=== PATIENT | male | born 1970 | race Caucasian/White ===

== ENCOUNTER 2017-07-14 22:12 | Emergency (ER) | payer BC ==
[~2017-07-14] VITALS: Ht 172.7 cm; Wt 100.7 kg
[~2017-07-14 22:12] MED LIST: AMOXICILLIN500 M3 PO; AMOXICILLIN500 MG PO; ATORVASTATIN CA20 M1 PO; ATORVASTATIN CA40 M1 PO; AVANDIA4 MG PO; CIPROFLOXACIN500 MG PO; CYCLOBENZAPRINE10 MG PO; FENOFIBRATE54 MG PO; FLAGYL500 MG PO; GARCINIA CAMBO1 EACH PO; GLIPIZIDE ER10 M1 PO; HYDROCHLOROTH12.5 MG PO; HYDROCODONE BIT1 T11 PO; INSULIN SYRINGE1 DEV SC; INSULIN-HUMA100 U/ML; KEFLEX500 MG PO; LANTUS100 U/ML SC; LIPITOR20 MG PO; LISINOPRIL AND1 TAB PO; LISINOPRIL10 MG PO; LOPID600 MG PO; METFORMIN HCL500 MG PO; METFORMIN1000 MG PO; MOTRIN800 MG PO; NORCO 5-325 TA1 EACH PO; NOVOLOG (INSULI10 ML; PRAVACHOL40 MG PO; PRAVASTATIN SOD40 MG PO; PREDNISONE10 MG PO; PYRIDIUM200 MG PO; TOBREX OPHTH S2.5 ML OPH; TORADOL10 MG PO; TRAMADOL HCL50 MG PO; TRICOR145 MG PO; VICODIN 5/500 505 MG PO; VICODIN ES 7501 TAB PO; VITAMIN D-32000 UNI1 PO; ZOFRAN ODT4 MG SL; Zofran4 MG PO
[2017-07-14] MEDS ORDERED: TAMIFLU 75MG CA75 MG PO (23:56)
== END 2017-07-15 00:05 | disposition home or self-care (01) ==
LOC: ED 22:12
DX: J40 Bronchitis, not specified as acute or chronic (principal); J10.1 Influenza due to other identified influenza virus with other respiratory manifestations; E66.9 Obesity, unspecified; E11.9 Type 2 diabetes mellitus without complications; E78.5 Hyperlipidemia, unspecified; I10 Essential (primary) hypertension; E11.10 Type 2 diabetes mellitus with ketoacidosis without coma; Z88.6 Allergy status to analgesic agent; Z79.4 Long term (current) use of insulin; Z91.018 Allergy to other foods; Z98.890 Other specified postprocedural states

== ENCOUNTER 2017-07-17 20:16 | Inpatient (IN) | payer BC ==
[~2017-07-17] VITALS: Ht 172.7 cm; Wt 104.8 kg
--- NOTE | ~2017-07-17 | PR ---
[place], [place] PROGRESS NOTE NAME: PRESTON PALOMO [facility] #: [id number] UNIT #: [id number] ROOM: 526 DOCTOR: TRACY BURNETT MD,DALE BIRTHDATE: [birth year] DOS: 07/21/2017 SUBJECTIVE: The patient was noted comfortable at this time, reduction of cough. The patient was noted with sputum expectoration still noted, described mildly purulent. The color was described to be yellowish. The patient was started on the oral doxycycline, which has been tolerated from last night and he received this morning dose as well. OBJECTIVE: VITAL SIGNS: The patient shows a normal temperature. The temperature of the patient at midnight noted 100.4 degree Fahrenheit, respiratory rate 18-20, heart rate of 61, blood pressure 121/71 to 125/57. Pulse oxygen saturation of the patient noted on room air 96% saturation. HEENT: Chronic obesity. NECK: Supple. CARDIOVASCULAR: S1, S2 audible. LUNGS: No wheeze or crackles. ABDOMEN: Soft, nontender. EXTREMITIES: Without edema. LABORATORY DATA: CBC: WBC count 4.4, hemoglobin 12.6, hematocrit 34.4, platelet count normal. BMP: Glucose 285, potassium 3.4. IMPRESSION: 1. Acute bronchitis for the patient noted with Staphylococcus aureus, currently treated with oral antibiotics for the patient. Doxycycline received with vancomycin as well for this admission. 2. Chronic obesity. PLAN OF MANAGEMENT: Continue antibiotics, bronchodilators, oxygen supplementation, other plan of therapy and care. DALE MOLINA MD CM:PNTRANS [id number] DALE BURNETT MD 07/21/171934 interface
--- NOTE | ~2017-07-17 | CON ---
[place], [place] REPORT OF CONSULTATION NAME: PRESTON PALOMO [facility] #: [id number] UNIT #: [id number] ROOM: 526 DOCTOR: DALE CLAYTON MD BIRTHDATE: [birth year] DOS: 07/18/2017 PULMONARY CONSULTATION, EVALUATION, AND MANAGEMENT REASON FOR CONSULTATION: Assess the patient's hemoptysis, coughing, ongoing with excessive sputum expectoration. CONSULTATION REQUESTED BY: Hospitalist services. HISTORY OF PRESENT ILLNESS: This is a 46-year-old white male, not known with any past medical illness related to pulmonary disease. He developed acute respiratory symptoms for the past several days. The symptoms was noted with sore throat, hoarseness, fever, and fatigue. The patient was seen as an emergency patient on 07/14/2017 for further assessment. The patient was tested positive for influenza rapid testing. The patient was also noted with acute pharyngitis. He was given intramuscular penicillin and also prescribed Tamiflu. The patient has not started the medication and returned back to the Emergency Room on 07/17/2017, noted with progressive worsening of the respiratory symptoms with copious amount of purulent sputum expectoration with cough. He denies any symptoms of chest pain with that. He was complaining of some symptoms of shortness of breath as well. He was stating that it has been noted like an elephant sitting on his chest feeling. The patient reported occasional wheezing. Denies any symptoms of wheezing. Denies any symptoms of true chest pain. He has been currently admitted to the hospital, being treated for acute pneumonia and acute bronchitis and other medical illnesses. patient noted with symptoms of small blood-tinged sputum expectoration prior to assessment in the Emergency Room. REVIEW OF SYSTEMS: CONSTITUTIONAL: Fatigue and tiredness reported with some symptoms of fever. There were no chills. EYES: Denies any dryness, redness, tenderness, or pain. EARS, NOSE, AND THROAT SYMPTOMS: Sore throat at this time. Sore throat, which was noted previously on 07/11/2017 has resolved. Denies symptoms of postnasal drainage. Denies symptoms of epistaxis. CARDIOVASCULAR SYSTEM: Denies angina pain, edema, pain in lower extremities, or palpitations. GASTROINTESTINAL SYMPTOMS: Denies dysphagia, nausea, vomiting, diarrhea, abdominal pain, hematemesis, or melena. History of obesity without any abnormal weight loss. GENITOURINARY SYMPTOMS: Denies dysuria, suprapubic pain, hematuria. SKIN: Denies abnormal lesions or rashes. No ulcers. MUSCULOSKELETAL: No acute joint pain deformities, redness, or tenderness. CENTRAL NERVOUS DIZZINESS; No dizziness, headache, diplopia, or syncopal episodes. Denies tingling sensation of the extremities or any focal weakness. Remaining systems were reviewed, they were noted all negative. PAST MEDICAL HISTORY: Noted with: 1. History of moderate obesity, BMI 35. [place], [place] REPORT OF CONSULTATION NAME: PRESTON PALOMO UNIT #: [id number] ROOM: 526 DOCTOR: TRACY BURNETT MD,DALE BIRTHDATE: [birth year] 2. History of type 2 diabetes mellitus. 3. Essential hypertension. 4. Hyperlipidemia. 5. History of umbilical hernia. PAST SURGICAL HISTORY: Reported as: 1. T and A. 2. Right knee arthroscopy for tendon repair. 3. Right wrist surgery as well. SOCIAL HISTORY: The patient is nonsmoker lifetime. Denies any illicit drug use. Denies history of chronic alcohol dependence as well. He has been several times and stated he has 8 children. FAMILY HISTORY: The patient's father at the age of 65 years due to complication of brain cancer. Mother at the age of 21 years due to acute cardiac arrest. HOME MEDICATIONS: Noted use of Lantus insulin, Humalog, and Tamiflu, which was prescribed but not used. DRUG ALLERGY HISTORY: BENADRYL. PHYSICAL EXAMINATION: GENERAL: This is a 46-year-old white male who has been currently lying in the bed, without any acute distress, has been noted coughing, producing purulent amount of copious sputum. Hemoptysis noted in the cough. VITAL SIGNS: Height of the patient recorded by the nursing staff with height of 5 feet 8 inches, weight of 231 pounds, BMI 35.1. Vital signs of the patient, which has been recorded, shows the temperature noted as low grade 99.7 degree Fahrenheit to 99.4 degree Fahrenheit, respiratory rate of 13-18, heart rate of 127 on admission, currently noted 91, blood pressure 133/75-136/85. Pulse oxygen saturation of the patient on 3 liters nasal cannula 96% saturation and on room air noted 96% saturation. HEENT: Dpmumgyp-nc-caumpw obesity. Head was atraumatic. Eyes nonicterus. Decreased posterior pharyngeal space with high tongue base and crowding soft tissue structures. CARDIOVASCULAR: S1, S2 are audible. LUNGS: Not noted with any wheezing or crackles. Breath sounds are noted mildly diminished bilaterally. ABDOMEN: Noted moderate bowel sounds are present with obesity. There was no tenderness. EXTREMITIES: Chronic obesity without edema, clubbing, or cyanosis. MUSCULOSKELETAL: Without any acute deformities. SKIN: Noted without any abnormal lesions or rashes. CENTRAL NERVOUS SYSTEM: Cranial nerves 2-12 intact. MUSCULOSKELETAL: Without any acute deformities. SKIN: Visible skin, no lesions or rashes. LABORATORY DATA AND IMAGING STUDIES: Rapid strep test on 07/14/2017 was noted [place], [place] REPORT OF CONSULTATION NAME: PRESTON PALOMO UNIT #: [id number] ROOM: 526 DOCTOR: MARY CLAYTON MDM BIRTHDATE: [birth year] positive for strep beta hemolytic strep. Influenza B was noted positive on 07/14/2017. Lactic acid yesterday 2.0 on admission. CBC yesterday on admission, normal CBC. CMP of the patient yesterday on admission, glucose 339, normal BUN and creatinine. Glucose 132. Two-view chest x-ray did not show any acute infiltration yesterday. CBC repeated for the patient this morning was normal. The BMP of the patient this morning, glucose 348. The troponin was noted normal yesterday and this morning. This patient had a CT scan of the chest that was done without contrast, was reviewed, does not show any acute pulmonary infiltration or other abnormalities. Large amount of fat was present in the mediastinal area secondary to current obesity. This is a normal finding for his body habitus. IMPRESSION: 1. The patient who has been currently admitted to the hospital, noted with what appeared to be purulent tracheobronchitis with acute bacterial infection and current acute influenza infection. 2. History of moderate obesity. 3. Type 2 diabetes mellitus, noted primarily uncontrolled. There were no findings noted consistent with either bronchial asthma or chronic obstructive pulmonary disease. PLAN OF THERAPY: The patient has been getting Zithromax as the one antibiotic intravenously. He has been getting Tamiflu as well for the influenza B infection. He will be ordered antibiotics in addition to the Zithromax with cephalosporins if the symptoms of the patient do not improve. The hemoptysis, which was noted for the patient is not noted concerning at this time related to the acute bronchitis, it should resolve with resolution of the bronchitis. Order the sputum for Gram stain and culture. Monitor respiratory status closely. Bronchodilator for the patient to be continued to help mobilize secretions appropriately. In case of any further changes, additional treatment changes will be made accordingly. DALE MOLINA MD CM:CONSTR:REPORT OF CONSULTATION 1437 07/19/17 0041 interface
--- NOTE | ~2017-07-17 | EKG ---
[place], [place] ELECTROCARDIOGRAM REPORT NAME: PRESTON PALOMO UNIT #: [id number] ROOM: 526 DOCTOR: TRACY BURNETT MD,DALE BIRTHDATE: [birth year] DOS: 07/17/2017 The electrocardiogram was done for this patient on 07/17/2017 at 9:18 p.m. Sinus tachycardia was noted for the patient with nonspecific ST-T changes. DALE MOLINA MD CM:EKGRPT:ELECTROCARDIOGRAM REPORT [id number] DALE BURNETT MD
--- NOTE | ~2017-07-17 | PR ---
[place], [place] PROGRESS NOTE NAME: PRESTON PALOMO UNIT #: [id number] ROOM: 526 DOCTOR: TRACY BURNETT MDDALE BIRTHDATE: [birth year] DOS: 07/19/2017 PULMONARY PROGRESS NOTE SUBJECTIVE: The patient was still complaining of tightness in the chest. He has been producing moderate amount of sputum, which was noted to be purulent. Denies symptoms of hemoptysis. Denies symptoms of any chest pain. The patient denies any symptoms of headache. Denies symptoms of diplopia. General weakness and fatigue for the patient is still described. He denies symptoms of nausea, vomiting, diarrhea or hematuria. Remaining systems were reviewed for the patient, they were noted all negative. OBJECTIVE: VITAL SIGNS: Shows normal temperature of 99 degree Fahrenheit, respiratory rate 20-18, heart rate 66-76, blood pressure 130/88 to 94/52. Intake is 3795 mL, output was not recorded. Pulse ox saturation on room air was 90% saturation. HEENT: Moderate obesity. NECK: Supple. Head was atraumatic. CARDIOVASCULAR: S1, S2 audible. LUNGS: The patient was noted without any wheezing. There were no crackles. Breaths were noted generally decreased bilaterally. ABDOMEN: Soft, nontender. It was obese. EXTREMITIES: With chronic obesity without any edema. MUSCULOSKELETAL: No deformities. SKIN: No lesions or rashes. CENTRAL NERVOUS SYSTEM: Nonfocal. Cranial nerves 2-12 intact. LABORATORY DATA: Preliminary culture of the sputum for the patient was noted with heavy growth of gram-positive cocci. Preliminary results of Gram stain showed moderate white blood cells, moderate gram-positive cocci in pairs and chains, moderate gram-negative bacilli and gram-positive cocci. Throat culture showed normal tayla. BMP this morning: Glucose 268, the remaining BMP was normal. CBC today: WBC count 4.5, hemoglobin 12.7, hematocrit 36.1, platelet count 101,000. IMPRESSION: 1. Gram-positive cocci for the patient was noted in the sputum culture with severe acute bronchitis, still producing copious amount of sputum at this time. 2. Positive strep throat on rapid test was also noted with culture of the throat pending. CT scan of the chest that was done for the patient yesterday was not noted with any acute pulmonary infiltration. 3. Chronic obesity as well. PLAN OF MANAGEMENT: At this time, the patient is getting antibiotic as Tamiflu for gram-positive cocci and azithromycin. I will add vancomycin to regimen cover for staph aureus for this patient as part of the broad-spectrum antibiotics since the patient is still producing significant amount of sputum, which appeared to be purulent. The culture will be monitored prior to suggesting any other changes. Supportive care therapy, plan of management. Continuation of bronchodilator, medical management of hyperglycemia as well. [place], [place] PROGRESS NOTE NAME: PRESTON PALOMO UNIT #: [id number] ROOM: 526 DOCTOR: DALE CLAYTON MD BIRTHDATE: [birth year] Usual care with additional treatment changes will be made for the patient based on progression of his illness. DALE MOLINA MD CM:PNTRANS [id number] DALE BURNETT MD 07/20/17 0032 interface
--- NOTE | ~2017-07-17 | PR ---
[place], [place] PROGRESS NOTE NAME: STACIAPRESTON A UNIT #: [id number] ROOM: 526 DOCTOR: DALE CLAYTON MD BIRTHDATE: [birth year] DOS: 07/20/2017 SUBJECTIVE: The patient was noted comfortable at this time, resting on the bed, reduction of the sputum expectoration noticed, it appeared to be purulent. In general, was feeling better from yesterday. Denies symptoms, abdominal pain. Denies symptoms of nausea or vomiting. OBJECTIVE: VITAL SIGNS: For the patient which has been recorded shows the temperature as normal, respiratory rate 20, heart rate 66, blood pressure 132/87. The pulse oxygen saturation on room air 96% saturation. HEENT: Examination shows no acute change. NECK: Supple. CARDIOVASCULAR SYSTEM: S1, S2 audible. LUNGS: Noted without any wheezing or crackles. ABDOMEN: Soft, nontender. Bowel sounds present. EXTREMITIES: Without any acute edema. Chronic obesity. LABORATORY DATA: CBC today normal, WBC count was noted, platelet count mildly decreased 111,000. BMP: Glucose 298, BUN and creatinine was normal. Culture of the sputum and throat both noted with Staphylococcus aureus, noted resistant to penicillin, but sensitive to multiple antibiotics including oxacillin. IMPRESSION: 1. The patient was noted with acute severe bronchitis with Staphylococcus aureus, currently responding to the treatment effectively. 2. Acute pharyngitis also noted. 3. Chronic obesity as well. PLAN OF MANAGEMENT: Continue one more days of vancomycin and then switched at this time. Start the patient on doxycycline concomitantly as well because the alternative treatment, the patient will be changed from tomorrow. Discontinue Zithromax well. Supportive therapy, plan of management and other care. Additional treatment changes to be made for this patient based on the progression of the illness. [place], [place] PROGRESS NOTE NAME: PRESTON PALOMO UNIT #: [id number] ROOM: 526 DOCTOR: DLAE CLAYTON MD BIRTHDATE: [birth year] DALE MOLINA MD CM:PNTRANS [id number] DALE BURNETT MD 07/20/17 1839 interface
[~2017-07-17 20:16] MED LIST changes: +TAMIFLU 75MG CA75 MG PO
[2017-07-17 20:23] VITALS: BP 127/83
[2017-07-17 21:42] LABS: BASO % 0.2 % (0.0-1.0); HEMOGLOBIN 15.4 g/dl (14.0-18.0); LYMPH # 0.8 10*3/uL (1.3-4.4); LYMPH % 16.7 % (27.0-41.0); MEAN CELL VOLUME 86.2 fl (80.0-94.0); MEAN CORPUSCULAR HGB 31.6 pg (27.0-31.0); MEAN CORPUSCULAR HGB CONC 36.7 g/dl (33.0-37.0); MEAN PLATELET VOLUME 11.2 fl (9.6-12.3); MONO # 0.7 10*3/uL (0.1-1.0); MONO % 15.1 % (3.0-9.0); NEUT # 3.3 10*3/uL (2.3-7.9); NEUT % 67.8 % (47.0-73.0); PLATELET COUNT AUTOMATED 128 10*3/uL (130-400); RED BLOOD COUNT 4.87 10*6/uL (4.50-5.90); RED CELL DISTRI WIDTH 11.7 % (0-14.5); WHITE BLOOD COUNT 4.9 10*3/uL (4.8-10.8)
[2017-07-17 21:46] LABS: ALBUMIN 3.4 gm/dl (3.1-4.5); ALKALINE PHOSPHATASE 103 U/L (45-117); BUN 14 mg/dl (7-24); CHLORIDE 95 mmol/L (98-107); CREATININE 1.09 mg/dL (0.70-1.30); POTASSIUM 3.9 mmol/L (3.5-5.1); SGOT/AST 24 IU/L (3-35); SGPT/ALT 28 U/L (12-78); SODIUM 132 mmol/L (136-145); TOTAL PROTEIN 7.2 gm/dL (6.4-8.2)
[2017-07-17 21:47] LABS: TROPONIN I < 0.015 ng/ml (<0.045)
[2017-07-17 23:02] VITALS: BP 131/80
[2017-07-17 23:15] VITALS: BP 136/85
[2017-07-18 03:24] LABS: HEMATOCRIT 38.1 % (42.0-52.0); HEMOGLOBIN 13.7 g/dl (14.0-18.0); LYMPH # 1.1 10*3/uL (1.3-4.4); LYMPH % 20.1 % (27.0-41.0); MEAN CORPUSCULAR HGB 31.3 pg (27.0-31.0); MEAN PLATELET VOLUME 10.7 fl (9.6-12.3); MONO # 0.8 10*3/uL (0.1-1.0); MONO % 15.3 % (3.0-9.0); NEUT # 3.5 10*3/uL (2.3-7.9); NEUT % 64.4 % (47.0-73.0); PLATELET COUNT AUTOMATED 120 10*3/uL (130-400); RED BLOOD COUNT 4.38 10*6/uL (4.50-5.90); RED CELL DISTRI WIDTH 11.8 % (0-14.5); WHITE BLOOD COUNT 5.4 10*3/uL (4.8-10.8)
[2017-07-18 03:37] LABS: BUN 11 mg/dl (7-24); CHLORIDE 97 mmol/L (98-107); POTASSIUM 3.9 mmol/L (3.5-5.1); SODIUM 134 mmol/L (136-145)
[2017-07-18 03:42] LABS: CHOLESTEROL 108 mg/dL (<200); HDL CHOLESTEROL 32 mg/dl (40-60); LDL CHOLESTEROL 26 mg/dL (9-159); PHOSPHOROUS 3.7 mg/dL (2.5-4.9); TRIGLYCERIDES 250 mg/dl (<150); VLDL CHOLESTEROL 50 mg/dL (6-40)
[2017-07-18 08:00] VITALS: BP 133/75
[2017-07-18 12:00] VITALS: BP 138/78
[2017-07-18 16:00] VITALS: BP 112/69
[2017-07-18 20:00] VITALS: BP 109/60
[2017-07-19] VITALS: BP 94/52
[2017-07-19 06:34] LABS: BASO % 0.2 % (0.0-1.0); HEMATOCRIT 36.1 % (42.0-52.0); HEMOGLOBIN 12.7 g/dl (14.0-18.0); LYMPH # 1.4 10*3/uL (1.3-4.4); LYMPH % 30.1 % (27.0-41.0); MEAN CELL VOLUME 88.3 fl (80.0-94.0); MEAN CORPUSCULAR HGB 31.1 pg (27.0-31.0); MEAN CORPUSCULAR HGB CONC 35.2 g/dl (33.0-37.0); MEAN PLATELET VOLUME 11.2 fl (9.6-12.3); MONO # 0.6 10*3/uL (0.1-1.0); MONO % 13.6 % (3.0-9.0); NEUT # 2.5 10*3/uL (2.3-7.9); NEUT % 55.7 % (47.0-73.0); PLATELET COUNT AUTOMATED 101 10*3/uL (130-400); RED BLOOD COUNT 4.09 10*6/uL (4.50-5.90); RED CELL DISTRI WIDTH 11.9 % (0-14.5); WHITE BLOOD COUNT 4.5 10*3/uL (4.8-10.8)
[2017-07-19 07:01] LABS: BUN 10 mg/dl (7-24); CHLORIDE 104 mmol/L (98-107); CREATININE 0.84 mg/dL (0.70-1.30); POTASSIUM 3.8 mmol/L (3.5-5.1); SODIUM 138 mmol/L (136-145)
[2017-07-19 08:00] VITALS: BP 117/70
[2017-07-19 11:53] VITALS: BP 130/88
[2017-07-19 16:00] VITALS: BP 140/73
[2017-07-19 20:00] VITALS: BP 162/96
[2017-07-20] VITALS: BP 130/81
[2017-07-20 06:19] LABS: HEMATOCRIT 36.2 % (42.0-52.0); HEMOGLOBIN 12.9 g/dl (14.0-18.0); MEAN CELL VOLUME 88.3 fl (80.0-94.0); MEAN CORPUSCULAR HGB 31.5 pg (27.0-31.0); MEAN CORPUSCULAR HGB CONC 35.6 g/dl (33.0-37.0); MEAN PLATELET VOLUME 11.1 fl (9.6-12.3); PLATELET COUNT AUTOMATED 111 10*3/uL (130-400); RED CELL DISTRI WIDTH 11.7 % (0-14.5); WHITE BLOOD COUNT 5.2 10*3/uL (4.8-10.8)
[2017-07-20 06:48] LABS: ALBUMIN 2.7 gm/dl (3.1-4.5); ALKALINE PHOSPHATASE 85 U/L (45-117); BUN 10 mg/dl (7-24); CHLORIDE 103 mmol/L (98-107); CREATININE 0.89 mg/dL (0.70-1.30); POTASSIUM 3.9 mmol/L (3.5-5.1); SGOT/AST 24 IU/L (3-35); SGPT/ALT 21 U/L (12-78); SODIUM 138 mmol/L (136-145); TOTAL PROTEIN 6.3 gm/dL (6.4-8.2)
[2017-07-20 07:52] LABS: ATYPICAL LYMPHS 2 % (0-0); PLATELET SUFFICIENCY LOW (NORMAL); TOTAL CELLS COUNTED 100 #CELLS
[2017-07-20] MEDS ORDERED: GLIPIZIDE5 MG PO (09:04)
[2017-07-20] MEDS ORDERED: METFORMIN1000 MG PO (09:05)
[2017-07-20] MEDS ORDERED: LIPITOR20 MG PO (09:15)
[2017-07-20] MEDS ORDERED: ZESTORETIC 10-1 EACH PO (09:15)
[2017-07-20 12:00] VITALS: BP 132/87
[2017-07-20 16:00] VITALS: BP 150/83
[2017-07-20 20:00] VITALS: BP 167/72
[2017-07-21] VITALS: BP 125/57
[2017-07-21 06:11] LABS: HEMATOCRIT 34.7 % (42.0-52.0); HEMOGLOBIN 12.6 g/dl (14.0-18.0); MEAN CELL VOLUME 86.8 fl (80.0-94.0); MEAN CORPUSCULAR HGB 31.5 pg (27.0-31.0); MEAN CORPUSCULAR HGB CONC 36.3 g/dl (33.0-37.0); MEAN PLATELET VOLUME 10.8 fl (9.6-12.3); PLATELET COUNT AUTOMATED 137 10*3/uL (130-400); RED CELL DISTRI WIDTH 11.6 % (0-14.5); WHITE BLOOD COUNT 4.4 10*3/uL (4.8-10.8)
[2017-07-21 06:20] LABS: BUN 7 mg/dl (7-24); CHLORIDE 102 mmol/L (98-107); CREATININE 0.88 mg/dL (0.70-1.30); POTASSIUM 3.4 mmol/L (3.5-5.1); SODIUM 139 mmol/L (136-145)
[2017-07-21 06:30] LABS: TOTAL CELLS COUNTED 100 #CELLS
[2017-07-21 06:33] LABS: PLATELET SUFFICIENCY NORMAL (NORMAL)
[2017-07-21 08:00] VITALS: BP 121/71
[2017-07-21] MEDS ORDERED: HYCODAN/HYDROMET5 ML PO (12:15)
[2017-07-21] MEDS ORDERED: TAMIFLU 75MG CA75 MG PO (12:15)
[2017-07-21] MEDS ORDERED: DOXYCYCLINE MO100 M1 PO (12:15)
== END 2017-07-21 12:30 | disposition home or self-care (01) | DRG 872 ==
LOC: ED 20:16 → 5E 22:29 → EDHOLD 22:29 → 5E 22:41
PROVIDERS: Family Medicine; Internal Medicine; Physician Assistant; Student in an Organized Health Care Education/Training Program
DX: A41.9 Sepsis, unspecified organism (principal); D69.6 Thrombocytopenia, unspecified; E87.8 Other disorders of electrolyte and fluid balance, not elsewhere classified; E87.1 Hypo-osmolality and hyponatremia; E11.65 Type 2 diabetes mellitus with hyperglycemia; J02.0 Streptococcal pharyngitis; J10.1 Influenza due to other identified influenza virus with other respiratory manifestations; D72.810 Lymphocytopenia; I10 Essential (primary) hypertension; E78.5 Hyperlipidemia, unspecified; E66.9 Obesity, unspecified; D64.9 Anemia, unspecified; Z71.6 Tobacco abuse counseling; J20.9 Acute bronchitis, unspecified; Z88.9 Allergy status to unspecified drugs, medicaments and biological substances; Z79.4 Long term (current) use of insulin; Z91.018 Allergy to other foods; Z80.0 Family history of malignant neoplasm of digestive organs; Z82.49 Family history of ischemic heart disease and other diseases of the circulatory system; Z83.3 Family history of diabetes mellitus; Z68.33 Body mass index [BMI] 33.0-33.9, adult

== ENCOUNTER 2017-08-21 14:10 | Emergency (ER) | payer BC ==
[~2017-08-21] VITALS: Ht 172.7 cm; Wt 10.0 kg
[~2017-08-21 14:10] MED LIST changes: +DOXYCYCLINE MO100 M1 PO; +GLIPIZIDE5 MG PO; +HYCODAN/HYDROMET5 ML PO; +ZESTORETIC 10-1 EACH PO
[2017-08-21 15:21] LABS: ALKALINE PHOSPHATASE 100 U/L (45-117); BUN 19 mg/dl (7-24); CHLORIDE 96 mmol/L (98-107); CREATININE 1.01 mg/dL (0.70-1.30); LIPASE 185 U/L (73-393); POTASSIUM 3.8 mmol/L (3.5-5.1); SGOT/AST 23 IU/L (3-35); SGPT/ALT 36 U/L (12-78); SODIUM 131 mmol/L (136-145); TOTAL PROTEIN 8.2 gm/dL (6.4-8.2)
[2017-08-21 15:23] LABS: TROPONIN I < 0.015 ng/ml (<0.045)
[2017-08-21 15:25] LABS: BASO % 0.3 % (0.0-1.0); EOS % 0.3 % (1.0-4.0); HEMATOCRIT 44.4 % (42.0-52.0); HEMOGLOBIN 16.4 g/dl (14.0-18.0); LYMPH # 0.9 10*3/uL (1.3-4.4); LYMPH % 29.6 % (27.0-41.0); MEAN CELL VOLUME 85.5 fl (80.0-94.0); MEAN CORPUSCULAR HGB 31.6 pg (27.0-31.0); MEAN CORPUSCULAR HGB CONC 36.9 g/dl (33.0-37.0); MEAN PLATELET VOLUME 11.4 fl (9.6-12.3); MONO # 0.5 10*3/uL (0.1-1.0); MONO % 16.4 % (3.0-9.0); NEUT # 1.7 10*3/uL (2.3-7.9); NEUT % 53.1 % (47.0-73.0); PLATELET COUNT AUTOMATED 150 10*3/uL (130-400); RED BLOOD COUNT 5.19 10*6/uL (4.50-5.90); WHITE BLOOD COUNT 3.1 10*3/uL (4.8-10.8)
[2017-08-21] MEDS ORDERED: LEVAQUIN750 M1 PO (16:08)
[2017-08-21] MEDS ORDERED: PROAIR HFA8.5 GM INH (16:08)
[2017-08-21] MEDS ORDERED: PREDNISONE10 MG PO (16:08)
[2017-08-21] MEDS ORDERED: MUCINEX1200 M1 PO (16:08)
== END 2017-08-21 16:22 | disposition home or self-care (01) ==
LOC: ED 14:10
PROVIDERS: Physician Assistant
DX: J40 Bronchitis, not specified as acute or chronic (principal); Z90.89 Acquired absence of other organs; Z98.890 Other specified postprocedural states; Z79.4 Long term (current) use of insulin; Z79.899 Other long term (current) drug therapy; Z88.6 Allergy status to analgesic agent; Z91.018 Allergy to other foods

== ENCOUNTER 2018-05-14 09:32 | Emergency (ER) | payer OTHER ==
[~2018-05-14] VITALS: Ht 172.7 cm; Wt 97.1 kg
--- NOTE | ~2018-05-14 | EKG ---
[place], [place] ELECTROCARDIOGRAM REPORT NAME: PRESTON PALOMO UNIT #: [id number] ROOM: DOCTOR: EPIPHANY DRAFT REPORT BIRTHDATE: [birth year] [facility] Test Date: 2018-05-14 Test Time: 09:57:47 Pat Name: PRESTON PALOMO Department: Room: Gender: M Surveillance Sensor Officer: Ashli Meeks : 1970 Requested By: DIANE BARBER DNP Order Number: [id number] Reading MD: Joe Johnson MD Measurements Intervals [place] Rate: 89 P: 30 [place]: 138 QRS: 29 QRSD: 102 T: 0 QT: 363 QTc: 442 Interpretive Statements Sinus rhythm Borderline T wave abnormalities Electronically Signed On 05-14-2018 18:13:16 PST by Joe Johnson MD CM:EKGRPT:ELECTROCARDIOGRAM REPORT [id number] DIANE BARBER DNP EPIPHANY DRAFT REPORT DIANE BARBER DNP
[~2018-05-14 09:32] MED LIST changes: +LEVAQUIN750 M1 PO; +MUCINEX1200 M1 PO; +PROAIR HFA8.5 GM INH
[2018-05-14 10:02] LABS: BASO % 0.2 % (0.0-1.0); EOS % 0.3 % (1.0-4.0); HEMATOCRIT 42.6 % (42.0-52.0); HEMOGLOBIN 15.5 g/dl (14.0-18.0); LYMPH # 1.4 10*3/uL (1.3-4.4); LYMPH % 11.5 % (27.0-41.0); MEAN CELL VOLUME 87.5 fl (80.0-94.0); MEAN CORPUSCULAR HGB 31.8 pg (27.0-31.0); MEAN CORPUSCULAR HGB CONC 36.4 g/dl (33.0-37.0); MEAN PLATELET VOLUME 10.9 fl (9.6-12.3); MONO # 1.4 10*3/uL (0.1-1.0); MONO % 11.4 % (3.0-9.0); NEUT # 9.4 10*3/uL (2.3-7.9); NEUT % 76.2 % (47.0-73.0); PLATELET COUNT AUTOMATED 172 10*3/uL (130-400); RED BLOOD COUNT 4.87 10*6/uL (4.50-5.90); RED CELL DISTRI WIDTH 11.8 % (0-14.5); WHITE BLOOD COUNT 12.3 10*3/uL (4.8-10.8)
[2018-05-14 10:18] LABS: ALBUMIN 3.4 gm/dl (3.1-4.5); ALKALINE PHOSPHATASE 105 U/L (45-117); BUN 12 mg/dl (7-24); CHLORIDE 95 mmol/L (98-107); CREATININE 1.17 mg/dL (0.70-1.30); POTASSIUM 3.7 mmol/L (3.5-5.1); SGOT/AST 9 IU/L (3-35); SGPT/ALT 24 U/L (12-78); SODIUM 132 mmol/L (136-145); TOTAL PROTEIN 8.1 gm/dL (6.4-8.2)
[2018-05-14 10:19] LABS: TROPONIN I < 0.015 ng/ml (<0.045)
[2018-05-14] MEDS ORDERED: MUCINEX1200 M1 PO (11:22)
[2018-05-14] MEDS ORDERED: PROAIR HFA8.5 GM INH (11:22)
[2018-05-14] MEDS ORDERED: LEVOFLOXACIN500 MG PO (11:22)
== END 2018-05-14 11:27 | disposition home or self-care (01) ==
LOC: ED 09:32
PROVIDERS: Nurse Practitioner Family
DX: J20.9 Acute bronchitis, unspecified (principal); I10 Essential (primary) hypertension; E11.9 Type 2 diabetes mellitus without complications; Z88.8 Allergy status to other drugs, medicaments and biological substances; Z91.018 Allergy to other foods; Z79.899 Other long term (current) drug therapy; Z79.84 Long term (current) use of oral hypoglycemic drugs; Z79.4 Long term (current) use of insulin; Z98.890 Other specified postprocedural states

== ENCOUNTER 2019-11-21 02:54 | Emergency (ER) | payer BC ==
[~2019-11-21] VITALS: Ht 172.7 cm; Wt 93.9 kg
[~2019-11-21 02:54] MED LIST changes: +LEVOFLOXACIN500 MG PO
[2019-11-21] MEDS ORDERED: NORCO 5-325 TA1 EACH PO (05:29)
[2019-11-21] MEDS ORDERED: CLINDAMYCIN HC300 MG PO ×2 (05:29→05:49)
== END 2019-11-21 05:57 | disposition home or self-care (01) ==
LOC: ED 02:54
DX: K04.01 Reversible pulpitis (principal); K02.9 Dental caries, unspecified; E78.5 Hyperlipidemia, unspecified; E78.00 Pure hypercholesterolemia, unspecified; I10 Essential (primary) hypertension; E11.9 Type 2 diabetes mellitus without complications; Z91.018 Allergy to other foods; Z88.8 Allergy status to other drugs, medicaments and biological substances; Z79.899 Other long term (current) drug therapy; Z79.84 Long term (current) use of oral hypoglycemic drugs

== ENCOUNTER 2020-01-02 00:53 | Emergency (ER) | payer BC ==
[~2020-01-02 00:53] MED LIST changes: +CLINDAMYCIN HC300 MG PO
[2020-01-02] MEDS ORDERED: NORCO 5-325 TA1 EACH PO (02:06)
[2020-01-02] MEDS ORDERED: CLINDAMYCIN HC300 MG PO (02:06)
== END 2020-01-02 02:40 | disposition home or self-care (01) ==
LOC: ED 00:53
DX: K04.01 Reversible pulpitis (principal); K02.9 Dental caries, unspecified; K08.89 Other specified disorders of teeth and supporting structures; E11.9 Type 2 diabetes mellitus without complications; I10 Essential (primary) hypertension; E78.00 Pure hypercholesterolemia, unspecified; Z88.8 Allergy status to other drugs, medicaments and biological substances; Z91.018 Allergy to other foods; Z79.84 Long term (current) use of oral hypoglycemic drugs; Z79.4 Long term (current) use of insulin

== ENCOUNTER 2020-12-21 09:38 | Emergency (ER) | payer OTHER ==
[~2020-12-21] VITALS: Wt 93.9 kg
== END 2020-12-21 11:16 | disposition home or self-care (01) ==
LOC: ED 09:38
DX: H61.22 Impacted cerumen, left ear (principal); R42 Dizziness and giddiness; H91.91 Unspecified hearing loss, right ear; E11.9 Type 2 diabetes mellitus without complications; I10 Essential (primary) hypertension; E78.5 Hyperlipidemia, unspecified; E66.9 Obesity, unspecified; Z88.6 Allergy status to analgesic agent; Z91.018 Allergy to other foods; Z79.899 Other long term (current) drug therapy; Z79.2 Long term (current) use of antibiotics; Z79.4 Long term (current) use of insulin; Z90.89 Acquired absence of other organs; Z98.890 Other specified postprocedural states

== ENCOUNTER 2021-05-10 21:32 | Emergency (ER) | payer OTHER ==
[2021-05-10] MEDS ORDERED: ZITHROMAX250 MG PO (22:48)
[2021-05-10] MEDS ORDERED: PREDNISONE20 M1 PO (22:48)
== END 2021-05-10 23:27 | disposition home or self-care (01) ==
LOC: ED 21:32
DX: J40 Bronchitis, not specified as acute or chronic (principal); Z79.899 Other long term (current) drug therapy; Z88.8 Allergy status to other drugs, medicaments and biological substances

== ENCOUNTER 2021-05-24 13:13 | Emergency (ER) | payer OTHER ==
[~2021-05-24 13:13] MED LIST changes: +PREDNISONE20 M1 PO; +ZITHROMAX250 MG PO
[2021-05-24] MEDS ORDERED: PROVENTIL HFA6.7 GM INH (21:16)
[2021-05-24] MEDS ORDERED: PREDNISONE20 M1 PO (22:08)
== END 2021-05-25 00:20 | disposition home or self-care (01) ==
LOC: ED 13:13
DX: U07.1 COVID-19 (principal); Z79.899 Other long term (current) drug therapy

== ENCOUNTER 2021-05-25 12:46 | Emergency (ER) | payer OTHER ==
[~2021-05-25 12:46] MED LIST changes: +PROVENTIL HFA6.7 GM INH
== END 2021-05-25 15:38 | disposition home or self-care (01) ==
LOC: ED 12:46
DX: U07.1 COVID-19 (principal); Z88.8 Allergy status to other drugs, medicaments and biological substances; Z79.899 Other long term (current) drug therapy

== ENCOUNTER 2021-08-07 00:14 | Emergency (ER) | payer OTHER ==
[~2021-08-07] VITALS: Ht 172.7 cm; Wt 91.2 kg
[2021-08-07] MEDS ORDERED: ALOGLIPTIN25 MG PO (00:24)
[2021-08-07 01:25] LABS: BASO % 0.4 % (0.0-1.0); EOS # 0.1 10*3/uL (0.0-0.4); EOS % 1.3 % (1.0-4.0); HEMATOCRIT 40.5 % (42.0-52.0); LYMPH # 1.8 10*3/uL (1.3-4.4); LYMPH % 23.2 % (27.0-41.0); MEAN CELL VOLUME 88.6 fl (80.0-94.0); MEAN CORPUSCULAR HGB 31.5 pg (27.0-31.0); MEAN CORPUSCULAR HGB CONC 35.6 g/dl (33.0-37.0); MEAN PLATELET VOLUME 11.3 fl (9.6-12.3); MONO % 12.5 % (3.0-9.0); NEUT # 4.9 10*3/uL (2.3-7.9); NEUT % 62.1 % (47.0-73.0); PLATELET COUNT AUTOMATED 191 10*3/uL (130-400); RED BLOOD COUNT 4.57 10*6/uL (4.50-5.90); RED CELL DISTRI WIDTH 11.9 % (0-14.5); WHITE BLOOD COUNT 7.9 10*3/uL (4.8-10.8)
[2021-08-07 01:58] LABS: ALKALINE PHOSPHATASE 117 U/L (45-117); BUN 16 mg/dl (7-24); CHLORIDE 106 mmol/L (98-107); CPK 127 U/L (39-308); CREATININE 1.08 mg/dL (0.70-1.30); SGOT/AST 14 IU/L (3-35); SGPT/ALT 33 U/L (12-78); SODIUM 138 mmol/L (136-145); TOTAL PROTEIN 6.6 gm/dL (6.4-8.2)
[2021-08-07] MEDS ORDERED: NAPROSYN500 MG PO (10:35)
== END 2021-08-07 10:51 | disposition home or self-care (01) ==
LOC: ED 00:14
PROVIDERS: Emergency Medicine
DX: M79.18 Myalgia, other site (principal); E11.9 Type 2 diabetes mellitus without complications; I10 Essential (primary) hypertension; E78.5 Hyperlipidemia, unspecified; Z88.8 Allergy status to other drugs, medicaments and biological substances; Z91.018 Allergy to other foods; Z79.899 Other long term (current) drug therapy; E66.9 Obesity, unspecified; Z90.89 Acquired absence of other organs; Z98.890 Other specified postprocedural states

== ENCOUNTER 2021-11-24 11:33 | Emergency (ER) | payer OTHER ==
[~2021-11-24] VITALS: Ht 172.7 cm; Wt 95.3 kg
[~2021-11-24 11:33] MED LIST changes: +ALOGLIPTIN25 MG PO; +NAPROSYN500 MG PO
[2021-11-24 12:50] LABS: BASO % 0.4 % (0.0-1.0); EOS # 0.1 10*3/uL (0.0-0.4); EOS % 1.6 % (1.0-4.0); LYMPH # 1.2 10*3/uL (1.3-4.4); LYMPH % 18.4 % (27.0-41.0); MEAN CELL VOLUME 87.4 fl (80.0-94.0); MEAN CORPUSCULAR HGB 31.3 pg (27.0-31.0); MEAN CORPUSCULAR HGB CONC 35.9 g/dl (33.0-37.0); MEAN PLATELET VOLUME 10.8 fl (9.6-12.3); MONO # 0.9 10*3/uL (0.1-1.0); MONO % 12.6 % (3.0-9.0); NEUT # 4.5 10*3/uL (2.3-7.9); NEUT % 66.3 % (47.0-73.0); PLATELET COUNT AUTOMATED 181 10*3/uL (130-400); RED BLOOD COUNT 4.69 10*6/uL (4.50-5.90); RED CELL DISTRI WIDTH 11.8 % (0-14.5); WHITE BLOOD COUNT 6.7 10*3/uL (4.8-10.8)
[2021-11-24 13:08] LABS: ALKALINE PHOSPHATASE 74 U/L (45-117); BUN 23 mg/dl (7-24); CHLORIDE 106 mmol/L (98-107); CREATININE 1.04 mg/dL (0.70-1.30); POTASSIUM 4.4 mmol/L (3.5-5.1); SGOT/AST 11 IU/L (3-35); SGPT/ALT 23 U/L (12-78); SODIUM 139 mmol/L (136-145); TOTAL PROTEIN 7.1 gm/dL (6.4-8.2)
== END 2021-11-24 19:41 | disposition home or self-care (01) ==
LOC: ED 11:33
PROVIDERS: Emergency Medicine; Nurse Practitioner Family
DX: M79.10 Myalgia, unspecified site (principal); Z20.822 Contact with and (suspected) exposure to COVID-19; R11.2 Nausea with vomiting, unspecified; E11.9 Type 2 diabetes mellitus without complications; Z88.8 Allergy status to other drugs, medicaments and biological substances; Z79.899 Other long term (current) drug therapy; Z98.890 Other specified postprocedural states; Z90.89 Acquired absence of other organs

== ENCOUNTER 2022-01-04 11:31 | Emergency (ER) | payer OTHER ==
[~2022-01-04] VITALS: Ht 172.7 cm; Wt 92.5 kg
[2022-01-04 12:31] LABS: BASO % 0.4 % (0.0-1.0); EOS # 0.1 10*3/uL (0.0-0.4); EOS % 0.6 % (1.0-4.0); HEMATOCRIT 39.2 % (42.0-52.0); LYMPH # 1.5 10*3/uL (1.3-4.4); LYMPH % 18.3 % (27.0-41.0); MEAN CELL VOLUME 89.3 fl (80.0-94.0); MEAN CORPUSCULAR HGB 31.4 pg (27.0-31.0); MEAN CORPUSCULAR HGB CONC 35.2 g/dl (33.0-37.0); MONO # 0.9 10*3/uL (0.1-1.0); MONO % 10.9 % (3.0-9.0); NEUT # 5.8 10*3/uL (2.3-7.9); NEUT % 69.6 % (47.0-73.0); PLATELET COUNT AUTOMATED 176 10*3/uL (130-400); RED BLOOD COUNT 4.39 10*6/uL (4.50-5.90); RED CELL DISTRI WIDTH 11.4 % (0-14.5); WHITE BLOOD COUNT 8.3 10*3/uL (4.8-10.8)
[2022-01-04 12:47] LABS: CREATININE 1.78 mg/dL (0.70-1.30); POTASSIUM 4.9 mmol/L (3.5-5.1); TOTAL PROTEIN 7.1 gm/dL (6.4-8.2)
== END 2022-01-04 16:09 | disposition home or self-care (01) ==
LOC: ED 11:31
PROVIDERS: Physician Assistant
DX: E86.0 Dehydration (principal); Z79.899 Other long term (current) drug therapy; Z98.890 Other specified postprocedural states; Z88.8 Allergy status to other drugs, medicaments and biological substances

== ENCOUNTER 2022-01-27 16:23 | Inpatient (IN) | payer OTHER ==
[~2022-01-27] VITALS: Ht 172.7 cm; Wt 97.5 kg
[2022-01-27 16:33] VITALS: BP 128/82
[2022-01-27 16:51] LABS: BASO % 0.4 % (0.0-1.0); EOS # 0.1 10*3/uL (0.0-0.4); EOS % 0.9 % (1.0-4.0); HEMATOCRIT 38.3 % (42.0-52.0); LYMPH # 1.1 10*3/uL (1.3-4.4); LYMPH % 15.8 % (27.0-41.0); MEAN CELL VOLUME 88.5 fl (80.0-94.0); MEAN CORPUSCULAR HGB 32.1 pg (27.0-31.0); MEAN CORPUSCULAR HGB CONC 36.3 g/dl (33.0-37.0); MEAN PLATELET VOLUME 10.3 fl (9.6-12.3); MONO # 0.9 10*3/uL (0.1-1.0); MONO % 12.5 % (3.0-9.0); NEUT # 4.8 10*3/uL (2.3-7.9); PLATELET COUNT AUTOMATED 201 10*3/uL (130-400); RED BLOOD COUNT 4.33 10*6/uL (4.50-5.90); RED CELL DISTRI WIDTH 11.9 % (0-14.5); WHITE BLOOD COUNT 6.9 10*3/uL (4.8-10.8)
[2022-01-27 17:08] LABS: ACT PARTIAL THROMBO TIME 28.1 SECONDS (20.0-32.1)
[2022-01-27 17:12] LABS: CREATININE 1.62 mg/dL (0.70-1.30); POTASSIUM 4.2 mmol/L (3.5-5.1); TOTAL PROTEIN 7.3 gm/dL (6.4-8.2)
[2022-01-27 22:58] VITALS: BP 100/60
[2022-01-28] VITALS (8 sets, daily range): BP systolic 107–132; BP diastolic 66–82
[2022-01-28 01:49] LABS: BILIRUBIN Negative (Negative); BLOOD Negative (Negative); CLARITY Clear (Clear); COLOR Yellow (Yellow); GLUCOSE 3+ (Negative); KETONE Trace (Negative); LEUKO ESTERASE Negative (Negative); NITRITE Negative (Negative); PH 5.5 (4.5-8.0); SPECIFIC GRAVITY 1.025 (1.001-1.030)
[2022-01-28 02:16] LABS: RBC 0-2 rbc/hpf (0-2); WBC 0-2 wbc/hpf (0-5)
[2022-01-28 07:53] LABS: BASO % 0.5 % (0.0-1.0); EOS # 0.1 10*3/uL (0.0-0.4); EOS % 1.2 % (1.0-4.0); HEMATOCRIT 38.2 % (42.0-52.0); LYMPH # 1.4 10*3/uL (1.3-4.4); LYMPH % 17.6 % (27.0-41.0); MEAN CELL VOLUME 89.3 fl (80.0-94.0); MEAN CORPUSCULAR HGB 32.2 pg (27.0-31.0); MEAN CORPUSCULAR HGB CONC 36.1 g/dl (33.0-37.0); MEAN PLATELET VOLUME 10.5 fl (9.6-12.3); MONO # 1.1 10*3/uL (0.1-1.0); MONO % 13.6 % (3.0-9.0); NEUT # 5.2 10*3/uL (2.3-7.9); NEUT % 66.6 % (47.0-73.0); PLATELET COUNT AUTOMATED 180 10*3/uL (130-400); RED BLOOD COUNT 4.28 10*6/uL (4.50-5.90); RED CELL DISTRI WIDTH 11.9 % (0-14.5); WHITE BLOOD COUNT 7.8 10*3/uL (4.8-10.8)
[2022-01-28 08:09] LABS: ALKALINE PHOSPHATASE 80 U/L (45-117); BUN 28 mg/dl (7-24); CHLORIDE 106 mmol/L (98-107); CHOLESTEROL 155 mg/dL (<200); CREATININE 1.16 mg/dL (0.70-1.30); LDL CHOLESTEROL 61 mg/dL (9-159); POTASSIUM 4.4 mmol/L (3.5-5.1); SGOT/AST 31 IU/L (3-35); SGPT/ALT 25 U/L (12-78); SODIUM 137 mmol/L (136-145); TOTAL PROTEIN 6.9 gm/dL (6.4-8.2); TRIGLYCERIDES 276 mg/dl (<150)
[2022-01-28 09:54] LABS: VITAMIN D, 25-HYDROXY 28.6 ng/mL (30-100)
[2022-01-29] VITALS: BP 123/68
[2022-01-29 06:43] LABS: BASO % 0.4 % (0.0-1.0); EOS # 0.1 10*3/uL (0.0-0.4); EOS % 1.3 % (1.0-4.0); HEMATOCRIT 39.1 % (42.0-52.0); LYMPH # 1.7 10*3/uL (1.3-4.4); LYMPH % 24.7 % (27.0-41.0); MEAN CELL VOLUME 89.5 fl (80.0-94.0); MEAN CORPUSCULAR HGB 31.6 pg (27.0-31.0); MEAN CORPUSCULAR HGB CONC 35.3 g/dl (33.0-37.0); MEAN PLATELET VOLUME 10.9 fl (9.6-12.3); MONO # 1.1 10*3/uL (0.1-1.0); MONO % 16.7 % (3.0-9.0); NEUT # 3.8 10*3/uL (2.3-7.9); NEUT % 56.5 % (47.0-73.0); PLATELET COUNT AUTOMATED 187 10*3/uL (130-400); RED BLOOD COUNT 4.37 10*6/uL (4.50-5.90); RED CELL DISTRI WIDTH 11.9 % (0-14.5); WHITE BLOOD COUNT 6.7 10*3/uL (4.8-10.8)
[2022-01-29 07:03] LABS: BUN 23 mg/dl (7-24); CHLORIDE 107 mmol/L (98-107); CREATININE 1.02 mg/dL (0.70-1.30); POTASSIUM 4.7 mmol/L (3.5-5.1); SODIUM 140 mmol/L (136-145)
[2022-01-29 08:00] VITALS: BP 103/55
[2022-01-29] MEDS ORDERED: ATORVASTATIN CA40 M1 PO (15:57)
[2022-01-29] MEDS ORDERED: ASPIRIN ADULT L81 M2 PO (15:57)
[2022-01-29] MEDS ORDERED: LOPRESSOR25 MG PO (15:57)
[2022-01-29 16:00] VITALS: BP 137/79
== END 2022-01-29 17:50 | disposition home or self-care (01) | DRG 280 ==
LOC: ED 16:23 → EDHOLD 18:03 → 5E 01-28 13:18
PROVIDERS: Emergency Medicine; Family Medicine; Internal Medicine; ADMIT Emergency Medicine; ATTEND Emergency Medicine
PROC: 4A02XM4 Measurement of Cardiac Total Activity, External Approach (ICD-10-PCS; principal; 2022-01-29)
PROC: 3E073KZ Introduction of Other Diagnostic Substance into Coronary Artery, Percutaneous Approach (ICD-10-PCS; 2022-01-29)
DX: I21.4 Non-ST elevation (NSTEMI) myocardial infarction (principal); N17.0 Acute kidney failure with tubular necrosis; I10 Essential (primary) hypertension; E78.00 Pure hypercholesterolemia, unspecified; E66.9 Obesity, unspecified; E78.5 Hyperlipidemia, unspecified; Z96.651 Presence of right artificial knee joint; D64.9 Anemia, unspecified; E11.65 Type 2 diabetes mellitus with hyperglycemia; E78.2 Mixed hyperlipidemia; E83.39 Other disorders of phosphorus metabolism; F17.220 Nicotine dependence, chewing tobacco, uncomplicated; M47.816 Spondylosis without myelopathy or radiculopathy, lumbar region; Z71.6 Tobacco abuse counseling; Z88.8 Allergy status to other drugs, medicaments and biological substances; Z86.16 Personal history of COVID-19; Z80.8 Family history of malignant neoplasm of other organs or systems; Z82.49 Family history of ischemic heart disease and other diseases of the circulatory system; R06.09 Other forms of dyspnea; R00.0 Tachycardia, unspecified

== ENCOUNTER 2022-04-05 08:52 | Emergency (ER) | payer OTHER ==
[~2022-04-05] VITALS: Wt 93.9 kg
[~2022-04-05 08:52] MED LIST changes: +ASPIRIN ADULT L81 M2 PO; +LOPRESSOR25 MG PO
== END 2022-04-05 10:26 | disposition home or self-care (01) ==
LOC: ED 08:52
DX: S46.911A Strain of unspecified muscle, fascia and tendon at shoulder and upper arm level, right arm, initial encounter (principal); F17.220 Nicotine dependence, chewing tobacco, uncomplicated; Z88.8 Allergy status to other drugs, medicaments and biological substances; Z91.018 Allergy to other foods; Z79.82 Long term (current) use of aspirin; Z79.899 Other long term (current) drug therapy; Z90.89 Acquired absence of other organs; X58.XXXA Exposure to other specified factors, initial encounter; Y93.89 Activity, other specified; Y92.89 Other specified places as the place of occurrence of the external cause; Y99.8 Other external cause status

== ENCOUNTER → 2022-06-06 | Outpatient (CLI) | payer OTHER | END | disposition home or self-care (01) | LOC: MRI 03:00 | PROVIDERS: ATTEND Family Medicine | DX: S43.401A Unspecified sprain of right shoulder joint, initial encounter (principal); M75.51 Bursitis of right shoulder; M75.121 Complete rotator cuff tear or rupture of right shoulder, not specified as traumatic; M19.011 Primary osteoarthritis, right shoulder; X58.XXXA Exposure to other specified factors, initial encounter; Y93.89 Activity, other specified; Y92.89 Other specified places as the place of occurrence of the external cause; Y99.8 Other external cause status ==

== ENCOUNTER 2022-07-03 22:43 | Emergency (ER) | payer OTHER ==
[~2022-07-03] VITALS: Ht 172.7 cm; Wt 93.9 kg
[2022-07-03] MEDS ORDERED: [UNRECOGNIZED DRUG - OTHER] PO (23:35)
== END 2022-07-04 00:30 | disposition home or self-care (01) ==
LOC: ED 22:43
DX: M19.011 Primary osteoarthritis, right shoulder (principal); F17.220 Nicotine dependence, chewing tobacco, uncomplicated; Z88.8 Allergy status to other drugs, medicaments and biological substances; Z79.899 Other long term (current) drug therapy; Z90.89 Acquired absence of other organs; Z98.890 Other specified postprocedural states

== ENCOUNTER 2022-07-16 16:42 | Emergency (ER) | payer OTHER ==
[~2022-07-16] VITALS: Ht 172.7 cm; Wt 93.9 kg
[~2022-07-16 16:42] MED LIST changes: +[UNRECOGNIZED DRUG - OTHER] PO
== END 2022-07-16 18:38 | disposition home or self-care (01) ==
LOC: ED 16:42
DX: R51.9 Headache, unspecified (principal); Z20.822 Contact with and (suspected) exposure to COVID-19; R09.81 Nasal congestion; J02.9 Acute pharyngitis, unspecified; I10 Essential (primary) hypertension; E11.9 Type 2 diabetes mellitus without complications; E78.00 Pure hypercholesterolemia, unspecified; Z88.8 Allergy status to other drugs, medicaments and biological substances; Z79.899 Other long term (current) drug therapy; Z90.89 Acquired absence of other organs

== ENCOUNTER 2022-07-19 14:29 | Emergency (ER) | payer OTHER ==
[~2022-07-19] VITALS: Ht 172.7 cm; Wt 93.9 kg
[2022-07-19] MEDS ORDERED: VIBRA-TAB100 MG PO (14:54)
== END 2022-07-19 15:03 | disposition home or self-care (01) ==
LOC: ED 14:29
DX: J01.10 Acute frontal sinusitis, unspecified (principal); Z91.018 Allergy to other foods; Z88.8 Allergy status to other drugs, medicaments and biological substances; Z98.890 Other specified postprocedural states; Z90.89 Acquired absence of other organs; F17.220 Nicotine dependence, chewing tobacco, uncomplicated

== ENCOUNTER 2022-08-05 22:28 | Emergency (ER) | payer OTHER ==
[~2022-08-05] VITALS: Wt 99.8 kg
[~2022-08-05 22:28] MED LIST changes: +VIBRA-TAB100 MG PO
[2022-08-05 23:05] LABS: BASO % 0.6 % (0.0-1.0); EOS # 0.1 10*3/uL (0.0-0.4); EOS % 1.9 % (1.0-4.0); HEMATOCRIT 38.9 % (42.0-52.0); LYMPH # 1.8 10*3/uL (1.3-4.4); LYMPH % 28.3 % (27.0-41.0); MEAN CELL VOLUME 90.5 fl (80.0-94.0); MEAN CORPUSCULAR HGB 31.6 pg (27.0-31.0); MEAN PLATELET VOLUME 10.5 fl (9.6-12.3); MONO % 15.5 % (3.0-9.0); NEUT # 3.3 10*3/uL (2.3-7.9); NEUT % 53.1 % (47.0-73.0); PLATELET COUNT AUTOMATED 217 10*3/uL (130-400); RED CELL DISTRI WIDTH 11.9 % (0-14.5); WHITE BLOOD COUNT 6.3 10*3/uL (4.8-10.8)
[2022-08-05 23:20] LABS: ALKALINE PHOSPHATASE 105 U/L (46-116); BUN 13 mg/dl (9-23); CHLORIDE 102 mmol/L (98-107); SGPT/ALT 39 U/L (10-49); TOTAL PROTEIN 7.4 gm/dL (6.0-8.0)
[2022-08-06] MEDS ORDERED: Ondansetron4 MG PO (01:41)
[2022-08-06] MEDS ORDERED: Meclizine25 MG PO (01:41)
== END 2022-08-06 02:11 | disposition home or self-care (01) ==
LOC: ED 22:28
PROVIDERS: Emergency Medicine
DX: H81.10 Benign paroxysmal vertigo, unspecified ear (principal); E11.9 Type 2 diabetes mellitus without complications; I10 Essential (primary) hypertension; Z91.018 Allergy to other foods; Z88.8 Allergy status to other drugs, medicaments and biological substances; Z96.652 Presence of left artificial knee joint; Z98.890 Other specified postprocedural states; Z90.89 Acquired absence of other organs; F17.220 Nicotine dependence, chewing tobacco, uncomplicated

== ENCOUNTER 2022-08-08 18:06 | Emergency (ER) | payer OTHER ==
[~2022-08-08] VITALS: Ht 172.7 cm; Wt 93.9 kg
[~2022-08-08 18:06] MED LIST changes: +Meclizine25 MG PO; +Ondansetron4 MG PO
[2022-08-08 19:19] LABS: BASO % 0.4 % (0.0-1.0); EOS # 0.1 10*3/uL (0.0-0.4); EOS % 1.1 % (1.0-4.0); LYMPH # 1.1 10*3/uL (1.3-4.4); LYMPH % 15.9 % (27.0-41.0); MEAN CELL VOLUME 89.2 fl (80.0-94.0); MEAN CORPUSCULAR HGB CONC 35.9 g/dl (33.0-37.0); MEAN PLATELET VOLUME 10.3 fl (9.6-12.3); MONO # 0.8 10*3/uL (0.1-1.0); MONO % 10.8 % (3.0-9.0); NEUT # 5.1 10*3/uL (2.3-7.9); NEUT % 71.1 % (47.0-73.0); PLATELET COUNT AUTOMATED 202 10*3/uL (130-400); RED BLOOD COUNT 4.37 10*6/uL (4.50-5.90); RED CELL DISTRI WIDTH 12.1 % (0-14.5); WHITE BLOOD COUNT 7.2 10*3/uL (4.8-10.8)
[2022-08-08 19:34] LABS: ALKALINE PHOSPHATASE 84 U/L (46-116); BUN 13 mg/dl (9-23); CHLORIDE 102 mmol/L (98-107); POTASSIUM 4.6 mmol/L (3.4-5.1); SGPT/ALT 32 U/L (10-49); TOTAL PROTEIN 6.5 gm/dL (6.0-8.0)
== END 2022-08-08 20:22 | disposition home or self-care (01) ==
LOC: ED 18:06
PROVIDERS: Physician Assistant
DX: R42 Dizziness and giddiness (principal); R09.81 Nasal congestion; Z88.8 Allergy status to other drugs, medicaments and biological substances; Z91.018 Allergy to other foods; Z79.899 Other long term (current) drug therapy; Z90.89 Acquired absence of other organs; Z98.890 Other specified postprocedural states; F17.220 Nicotine dependence, chewing tobacco, uncomplicated

== ENCOUNTER 2022-08-26 19:53 | Emergency (ER) | payer OTHER ==
[~2022-08-26] VITALS: Ht 180.3 cm; Wt 106.4 kg
[2022-08-26 20:18] LABS: BASO % 0.5 % (0.0-1.0); EOS # 0.1 10*3/uL (0.0-0.4); EOS % 1.4 % (1.0-4.0); HEMATOCRIT 43.7 % (42.0-52.0); LYMPH # 1.9 10*3/uL (1.3-4.4); MEAN CELL VOLUME 90.9 fl (80.0-94.0); MEAN CORPUSCULAR HGB 31.4 pg (27.0-31.0); MEAN CORPUSCULAR HGB CONC 34.6 g/dl (33.0-37.0); MEAN PLATELET VOLUME 10.7 fl (9.6-12.3); MONO # 1.2 10*3/uL (0.1-1.0); MONO % 14.1 % (3.0-9.0); NEUT # 5.4 10*3/uL (2.3-7.9); NEUT % 61.7 % (47.0-73.0); PLATELET COUNT AUTOMATED 231 10*3/uL (130-400); RED BLOOD COUNT 4.81 10*6/uL (4.50-5.90); RED CELL DISTRI WIDTH 11.9 % (0-14.5); WHITE BLOOD COUNT 8.8 10*3/uL (4.8-10.8)
[2022-08-26 20:36] LABS: POTASSIUM 4.3 mmol/L (3.4-5.1); TOTAL PROTEIN 7.7 gm/dL (6.0-8.0)
[2022-08-26] MEDS ORDERED: ONDANSETRON4 MG SL (21:16)
== END 2022-08-26 21:27 | disposition home or self-care (01) ==
LOC: ED 19:53
PROVIDERS: Internal Medicine
DX: K52.9 Noninfective gastroenteritis and colitis, unspecified (principal); E11.9 Type 2 diabetes mellitus without complications; I10 Essential (primary) hypertension; E78.00 Pure hypercholesterolemia, unspecified; Z91.018 Allergy to other foods; Z88.8 Allergy status to other drugs, medicaments and biological substances; Z90.89 Acquired absence of other organs; Z98.890 Other specified postprocedural states; F17.220 Nicotine dependence, chewing tobacco, uncomplicated

== ENCOUNTER 2022-09-06 22:14 | Emergency (ER) | payer OTHER ==
[~2022-09-06] VITALS: Ht 172.7 cm; Wt 93.9 kg
[~2022-09-06 22:14] MED LIST changes: +ONDANSETRON4 MG SL
[2022-09-07] MEDS ORDERED: HYDROCODONE-AC1 EAC1 PO (01:27)
[2022-09-07] MEDS ORDERED: Orphenadrine C100 MG PO (01:27)
== END 2022-09-07 01:30 | disposition home or self-care (01) ==
LOC: ED 22:14
DX: S33.5XXA Sprain of ligaments of lumbar spine, initial encounter (principal); Z91.018 Allergy to other foods; Z88.8 Allergy status to other drugs, medicaments and biological substances; Z79.899 Other long term (current) drug therapy; Z90.89 Acquired absence of other organs; F17.220 Nicotine dependence, chewing tobacco, uncomplicated; X50.1XXA Overexertion from prolonged static or awkward postures, initial encounter; Y93.89 Activity, other specified; Y92.89 Other specified places as the place of occurrence of the external cause; Y99.8 Other external cause status

== ENCOUNTER 2022-09-18 18:28 | Emergency (ER) | payer OTHER ==
[~2022-09-18] VITALS: Wt 93.9 kg
[~2022-09-18 18:28] MED LIST changes: +HYDROCODONE-AC1 EAC1 PO; +Orphenadrine C100 MG PO
[2022-09-18] MEDS ORDERED: METHOCARBAMOL500 M1 PO (21:26)
== END 2022-09-18 21:29 | disposition home or self-care (01) ==
LOC: ED 18:28
DX: S46.011A Strain of muscle(s) and tendon(s) of the rotator cuff of right shoulder, initial encounter (principal); E11.9 Type 2 diabetes mellitus without complications; Z79.4 Long term (current) use of insulin; I10 Essential (primary) hypertension; E78.00 Pure hypercholesterolemia, unspecified; Z91.018 Allergy to other foods; Z88.8 Allergy status to other drugs, medicaments and biological substances; Z90.89 Acquired absence of other organs; Z98.890 Other specified postprocedural states; F17.220 Nicotine dependence, chewing tobacco, uncomplicated; X58.XXXA Exposure to other specified factors, initial encounter; Y93.89 Activity, other specified; Y92.89 Other specified places as the place of occurrence of the external cause; Y99.8 Other external cause status

== ENCOUNTER 2022-09-27 03:07 | Emergency (ER) | payer OTHER ==
[~2022-09-27] VITALS: Wt 104.3 kg
[~2022-09-27 03:07] MED LIST changes: +METHOCARBAMOL500 M1 PO
[2022-09-27 03:23] LABS: BASO % 0.5 % (0.0-1.0); EOS # 0.1 10*3/uL (0.0-0.4); EOS % 1.5 % (1.0-4.0); HEMATOCRIT 37.7 % (42.0-52.0); LYMPH # 1.9 10*3/uL (1.3-4.4); LYMPH % 23.6 % (27.0-41.0); MEAN CELL VOLUME 88.9 fl (80.0-94.0); MEAN CORPUSCULAR HGB 32.1 pg (27.0-31.0); MEAN CORPUSCULAR HGB CONC 36.1 g/dl (33.0-37.0); MEAN PLATELET VOLUME 10.8 fl (9.6-12.3); MONO # 0.9 10*3/uL (0.1-1.0); MONO % 10.9 % (3.0-9.0); NEUT # 5.2 10*3/uL (2.3-7.9); NEUT % 63.1 % (47.0-73.0); PLATELET COUNT AUTOMATED 191 10*3/uL (130-400); RED BLOOD COUNT 4.24 10*6/uL (4.50-5.90); RED CELL DISTRI WIDTH 11.7 % (0-14.5); WHITE BLOOD COUNT 8.2 10*3/uL (4.8-10.8)
[2022-09-27 03:34] LABS: ACT PARTIAL THROMBO TIME 28.8 SECONDS (20.0-32.1)
[2022-09-27 03:39] LABS: ALKALINE PHOSPHATASE 97 U/L (46-116); BUN 16 mg/dl (9-23); CHLORIDE 105 mmol/L (98-107); POTASSIUM 4.6 mmol/L (3.4-5.1); SGPT/ALT 16 U/L (10-49); TOTAL PROTEIN 6.6 gm/dL (6.0-8.0)
== END 2022-09-27 06:56 | disposition home or self-care (01) ==
LOC: ED 03:07
PROVIDERS: Emergency Medicine
DX: R07.9 Chest pain, unspecified (principal); Z88.8 Allergy status to other drugs, medicaments and biological substances; Z91.018 Allergy to other foods; Z79.899 Other long term (current) drug therapy; Z90.89 Acquired absence of other organs; Z98.890 Other specified postprocedural states; F17.220 Nicotine dependence, chewing tobacco, uncomplicated

== ENCOUNTER 2022-10-15 22:16 | Emergency (ER) | payer OTHER ==
[~2022-10-15] VITALS: Ht 175.2 cm; Wt 90.7 kg
== END 2022-10-15 22:49 | disposition home or self-care (01) ==
LOC: ED 22:16
DX: G89.29 Other chronic pain (principal); M25.511 Pain in right shoulder; Z88.8 Allergy status to other drugs, medicaments and biological substances; Z91.018 Allergy to other foods; Z79.899 Other long term (current) drug therapy; Z98.890 Other specified postprocedural states; Z90.89 Acquired absence of other organs; F17.220 Nicotine dependence, chewing tobacco, uncomplicated

== ENCOUNTER 2023-05-08 15:50 | Emergency (ER) | payer OTHER ==
[~2023-05-08] VITALS: Ht 172.7 cm; Wt 93.9 kg
[2023-05-08] MEDS ORDERED: ROSUVASTATIN CAL5 MG PO (16:01)
== END 2023-05-08 20:39 | disposition home or self-care (01) ==
LOC: ED 15:50
DX: U07.1 COVID-19 (principal); B34.9 Viral infection, unspecified; R19.7 Diarrhea, unspecified; E11.9 Type 2 diabetes mellitus without complications; I10 Essential (primary) hypertension; E78.5 Hyperlipidemia, unspecified; I25.2 Old myocardial infarction; E66.9 Obesity, unspecified; F17.220 Nicotine dependence, chewing tobacco, uncomplicated; Z88.8 Allergy status to other drugs, medicaments and biological substances; Z91.018 Allergy to other foods; Z79.899 Other long term (current) drug therapy; Z79.82 Long term (current) use of aspirin; Z68.30 Body mass index [BMI] 30.0-30.9, adult; Z98.890 Other specified postprocedural states; Z90.89 Acquired absence of other organs

== ENCOUNTER 2023-06-04 04:23 | Emergency (ER) | payer OTHER ==
[~2023-06-04] VITALS: Ht 165.1 cm; Wt 68.0 kg
[~2023-06-04 04:23] MED LIST changes: +ROSUVASTATIN CAL5 MG PO
[2023-06-04 05:48] LABS: POTASSIUM 3.4 mmol/L (3.4-5.1); TOTAL PROTEIN 7.5 gm/dL (6.0-8.0)
[2023-06-04 06:10] LABS: BASO % 0.3 % (0.0-1.0); EOS # 0.1 10*3/uL (0.0-0.4); EOS % 0.6 % (1.0-4.0); HEMATOCRIT 45.3 % (42.0-52.0); LYMPH # 1.2 10*3/uL (1.3-4.4); LYMPH % 8.3 % (27.0-41.0); MEAN CELL VOLUME 89.2 fl (80.0-94.0); MEAN CORPUSCULAR HGB 31.7 pg (27.0-31.0); MEAN CORPUSCULAR HGB CONC 35.5 g/dl (33.0-37.0); MEAN PLATELET VOLUME 11.9 fl (9.6-12.3); MONO # 1.2 10*3/uL (0.1-1.0); MONO % 7.9 % (3.0-9.0); NEUT # 11.8 10*3/uL (2.3-7.9); PLATELET COUNT AUTOMATED 187 10*3/uL (130-400); RED BLOOD COUNT 5.08 10*6/uL (4.50-5.90); RED CELL DISTRI WIDTH 11.4 % (0-14.5); WHITE BLOOD COUNT 14.5 10*3/uL (4.8-10.8)
== END 2023-06-04 10:25 | disposition home or self-care (01) ==
LOC: ED 04:23
PROVIDERS: Internal Medicine
DX: K52.9 Noninfective gastroenteritis and colitis, unspecified (principal); R11.2 Nausea with vomiting, unspecified; E11.9 Type 2 diabetes mellitus without complications; I10 Essential (primary) hypertension; E78.00 Pure hypercholesterolemia, unspecified; Z91.018 Allergy to other foods; Z88.8 Allergy status to other drugs, medicaments and biological substances; Z90.89 Acquired absence of other organs; Z98.890 Other specified postprocedural states; F17.220 Nicotine dependence, chewing tobacco, uncomplicated

== ENCOUNTER 2023-06-06 11:46 | Emergency (ER) | payer OTHER ==
[~2023-06-06] VITALS: Wt 93.9 kg
[2023-06-06 15:28] LABS: BILIRUBIN Negative (Negative); BLOOD Negative (Negative); CLARITY Clear (Clear); COLOR Yellow (Yellow); GLUCOSE 3+ (Negative); KETONE Negative (Negative); LEUKO ESTERASE Negative (Negative); NITRITE Negative (Negative); SPECIFIC GRAVITY 1.015 (1.001-1.030); UROBILINOGEN 0.2 E.U./dl (0.0-1.0)
[2023-06-06 15:42] LABS: BASO % 0.4 % (0.0-1.0); EOS # 0.1 10*3/uL (0.0-0.4); EOS % 1.9 % (1.0-4.0); HEMATOCRIT 38.5 % (42.0-52.0); LYMPH # 1.4 10*3/uL (1.3-4.4); LYMPH % 30.1 % (27.0-41.0); MEAN CORPUSCULAR HGB 31.3 pg (27.0-31.0); MEAN CORPUSCULAR HGB CONC 34.8 g/dl (33.0-37.0); MEAN PLATELET VOLUME 11.2 fl (9.6-12.3); MONO # 0.9 10*3/uL (0.1-1.0); MONO % 19.7 % (3.0-9.0); NEUT # 2.2 10*3/uL (2.3-7.9); NEUT % 47.1 % (47.0-73.0); PLATELET COUNT AUTOMATED 141 10*3/uL (130-400); RED BLOOD COUNT 4.28 10*6/uL (4.50-5.90); RED CELL DISTRI WIDTH 11.6 % (0-14.5); WHITE BLOOD COUNT 4.7 10*3/uL (4.8-10.8)
[2023-06-06 16:03] LABS: ALKALINE PHOSPHATASE 87 U/L (46-116); BUN 13 mg/dl (9-23); CHLORIDE 104 mmol/L (98-107); LIPASE 37 U/L (12-53); POTASSIUM 4.3 mmol/L (3.4-5.1); SGPT/ALT 15 U/L (5-49); TOTAL PROTEIN 6.3 gm/dL (6.0-8.0)
[2023-06-06 16:20] LABS: WBC 0-2 wbc/hpf (0-5)
== END 2023-06-06 17:16 | disposition home or self-care (01) ==
LOC: ED 11:46
PROVIDERS: Nurse Practitioner Family
DX: A08.4 Viral intestinal infection, unspecified (principal); E11.9 Type 2 diabetes mellitus without complications; I10 Essential (primary) hypertension; E78.00 Pure hypercholesterolemia, unspecified; Z88.8 Allergy status to other drugs, medicaments and biological substances; Z91.018 Allergy to other foods; Z90.89 Acquired absence of other organs; Z98.890 Other specified postprocedural states; F17.220 Nicotine dependence, chewing tobacco, uncomplicated; Z20.822 Contact with and (suspected) exposure to COVID-19

== ENCOUNTER 2023-08-02 07:18 | Emergency (ER) | payer OTHER ==
[~2023-08-02] VITALS: Ht 172.7 cm; Wt 98.4 kg
[2023-08-02 08:08] LABS: BASO % 0.5 % (0.0-1.0); EOS # 0.1 10*3/uL (0.0-0.4); HEMATOCRIT 42.4 % (42.0-52.0); LYMPH # 1.8 10*3/uL (1.3-4.4); LYMPH % 21.1 % (27.0-41.0); MEAN CELL VOLUME 90.4 fl (80.0-94.0); MEAN CORPUSCULAR HGB 30.7 pg (27.0-31.0); MEAN PLATELET VOLUME 10.2 fl (9.6-12.3); MONO # 0.9 10*3/uL (0.1-1.0); MONO % 10.6 % (3.0-9.0); NEUT # 5.5 10*3/uL (2.3-7.9); NEUT % 66.3 % (47.0-73.0); PLATELET COUNT AUTOMATED 222 10*3/uL (130-400); RED BLOOD COUNT 4.69 10*6/uL (4.50-5.90); RED CELL DISTRI WIDTH 11.9 % (0-14.5); WHITE BLOOD COUNT 8.3 10*3/uL (4.8-10.8)
[2023-08-02 08:33] LABS: BUN 22 mg/dl (9-23); CHLORIDE 104 mmol/L (98-107); POTASSIUM 4.4 mmol/L (3.4-5.1)
[2023-08-02] MEDS ORDERED: SODIUM CHLORIDE 0.9% 1,000 ML IV ONE (09:15)
[2023-08-02] MEDS ORDERED: AMOX-CLAV 875-1 EACH PO (10:27)
== END 2023-08-02 10:49 | disposition home or self-care (01) ==
LOC: ED 07:18
PROVIDERS: Internal Medicine
DX: J01.90 Acute sinusitis, unspecified (principal); Z20.822 Contact with and (suspected) exposure to COVID-19; R11.2 Nausea with vomiting, unspecified; F17.220 Nicotine dependence, chewing tobacco, uncomplicated; Z88.8 Allergy status to other drugs, medicaments and biological substances; Z91.018 Allergy to other foods; Z79.899 Other long term (current) drug therapy; Z98.2 Presence of cerebrospinal fluid drainage device; Z98.890 Other specified postprocedural states; Z90.89 Acquired absence of other organs

== ENCOUNTER 2023-09-14 12:32 | Emergency (ER) | payer OTHER ==
[~2023-09-14] VITALS: Ht 172.7 cm; Wt 98.4 kg
[~2023-09-14 12:32] MED LIST changes: +AMOX-CLAV 875-1 EACH PO
[2023-09-14] MEDS ORDERED: GLIPIZIDE10 M2 PO (12:57)
[2023-09-14] MEDS ORDERED: METFORMIN HYD1000 MG PO (12:59)
[2023-09-14] MEDS ORDERED: JARDIANCE10 MG PO (12:59)
[2023-09-14] MEDS ORDERED: FISH OIL 1,0001 EAC2 PO (13:01)
[2023-09-14] MEDS ORDERED: IBUPROFEN 800 MG TAB PO ONE (13:15)
[2023-09-14] MEDS ORDERED: Metoclopramide Hydrochloride 5 MG TAB PO ONE (13:15)
[2023-09-14] MEDS ORDERED: REGLAN10 M1 PO (13:50)
[2023-09-14] MEDS ORDERED: IBU800 M2 PO (13:50)
[2023-09-14] MEDS ORDERED: AVPAK AZITHROM250 M1 PO (13:50)
== END 2023-09-14 14:00 | disposition home or self-care (01) ==
LOC: ED 12:32
DX: J40 Bronchitis, not specified as acute or chronic (principal); Z20.822 Contact with and (suspected) exposure to COVID-19; E11.9 Type 2 diabetes mellitus without complications; I10 Essential (primary) hypertension; E78.5 Hyperlipidemia, unspecified; F17.220 Nicotine dependence, chewing tobacco, uncomplicated; Z88.8 Allergy status to other drugs, medicaments and biological substances; Z79.82 Long term (current) use of aspirin; Z79.899 Other long term (current) drug therapy; Z90.89 Acquired absence of other organs; Z98.890 Other specified postprocedural states; Z96.611 Presence of right artificial shoulder joint

== ENCOUNTER 2023-09-17 20:55 | Emergency (ER) | payer OTHER ==
[~2023-09-17] VITALS: Ht 172.7 cm; Wt 98.4 kg
[~2023-09-17 20:55] MED LIST changes: +AVPAK AZITHROM250 M1 PO; +FISH OIL 1,0001 EAC2 PO; +GLIPIZIDE10 M2 PO; +IBU800 M2 PO; +JARDIANCE10 MG PO; +METFORMIN HYD1000 MG PO; +REGLAN10 M1 PO
[2023-09-17] MEDS ORDERED: methylPREDNISolone sod succ 1,000 MG/16 ML VIAL IM ONE (21:25)
[2023-09-17] MEDS ORDERED: Albuterol Sulf/Ipratropium 3 ML VIAL NEB ONE (21:25)
[2023-09-17] MEDS ORDERED: methylPREDNISolone sod succ 125 MG VIAL IM ONE (21:35)
[2023-09-17] MEDS ORDERED: Amoxicillin/Clavulanate Pota 875 MG TAB PO ONE (22:35)
[2023-09-17] MEDS ORDERED: AMOX-CLAV 875-1 EACH PO (22:41)
[2023-09-17] MEDS ORDERED: PROAIR RESPICL90 MCG INH (22:41)
[2023-09-17] MEDS ORDERED: MEDROL DOSEPAK4 MG PO (22:41)
[2023-09-17] MEDS ORDERED: BENZONATATE100 M1 PO (22:41)
== END 2023-09-17 23:45 | disposition home or self-care (01) ==
LOC: ED 20:55
DX: J20.9 Acute bronchitis, unspecified (principal); E11.9 Type 2 diabetes mellitus without complications; I10 Essential (primary) hypertension; I25.10 Atherosclerotic heart disease of native coronary artery without angina pectoris; F17.220 Nicotine dependence, chewing tobacco, uncomplicated; Z88.8 Allergy status to other drugs, medicaments and biological substances; Z79.82 Long term (current) use of aspirin; Z79.2 Long term (current) use of antibiotics; Z79.899 Other long term (current) drug therapy; Z90.89 Acquired absence of other organs; Z98.890 Other specified postprocedural states

== ENCOUNTER 2023-10-21 10:42 | Emergency (ER) | payer OTHER ==
[~2023-10-21] VITALS: Ht 172.7 cm; Wt 95.7 kg
[~2023-10-21 10:42] MED LIST changes: +BENZONATATE100 M1 PO; +MEDROL DOSEPAK4 MG PO; +PROAIR RESPICL90 MCG INH
[2023-10-21] MEDS ORDERED: SODIUM CHLORIDE 0.9% 1,000 ML IV ONE (11:20)
[2023-10-21] MEDS ORDERED: ACETAMINOPHEN 325 MG TAB PO ONE (11:20)
[2023-10-21 11:28] LABS: BASO % 0.4 % (0.0-1.0); EOS # 0.1 10*3/uL (0.0-0.4); EOS % 0.7 % (1.0-4.0); HEMATOCRIT 42.3 % (42.0-52.0); LYMPH # 1.6 10*3/uL (1.3-4.4); LYMPH % 19.1 % (27.0-41.0); MEAN CELL VOLUME 88.9 fl (80.0-94.0); MEAN CORPUSCULAR HGB 31.5 pg (27.0-31.0); MEAN CORPUSCULAR HGB CONC 35.5 g/dl (33.0-37.0); MEAN PLATELET VOLUME 10.6 fl (9.6-12.3); MONO # 0.8 10*3/uL (0.1-1.0); MONO % 10.1 % (3.0-9.0); NEUT # 5.7 10*3/uL (2.3-7.9); NEUT % 69.2 % (47.0-73.0); PLATELET COUNT AUTOMATED 166 10*3/uL (130-400); RED BLOOD COUNT 4.76 10*6/uL (4.50-5.90); RED CELL DISTRI WIDTH 12.1 % (0-14.5); WHITE BLOOD COUNT 8.2 10*3/uL (4.8-10.8)
[2023-10-21 11:46] LABS: BILIRUBIN Negative (Negative); BLOOD Negative (Negative); CLARITY Clear (Clear); COLOR Yellow (Yellow); GLUCOSE 3+ (Negative); KETONE Negative (Negative); LEUKO ESTERASE Negative (Negative); NITRITE Negative (Negative); SPECIFIC GRAVITY >= 1.030 (1.001-1.030); UROBILINOGEN 0.2 E.U./dl (0.0-1.0)
[2023-10-21 11:55] LABS: POTASSIUM 4.9 mmol/L (3.4-5.1); TOTAL PROTEIN 7.2 gm/dL (6.0-8.0)
[2023-10-21 11:58] LABS: BACTERIA TRACE; EPITHELIAL CELLS 0-2; MUCOUS TRACE; RBC 0-2 rbc/hpf (0-2); WBC 0-2 wbc/hpf (0-5)
[2023-10-21] MEDS ORDERED: MG-AL HYDROXIDE/SIMETICONE 30 ML UDC PO STA (12:39)
[2023-10-21] MEDS ORDERED: Dicyclomine Hydrochloride 20 MG/10 ML OSYR PO STA (12:39)
[2023-10-21] MEDS ORDERED: Lidocaine Hydrochloride 15 ML UDC PO STA (12:39)
== END 2023-10-21 12:58 | disposition home or self-care (01) ==
LOC: ED 10:42
PROVIDERS: Physician Assistant Medical
DX: K29.70 Gastritis, unspecified, without bleeding (principal); Z20.822 Contact with and (suspected) exposure to COVID-19; R11.2 Nausea with vomiting, unspecified; R19.7 Diarrhea, unspecified; E11.9 Type 2 diabetes mellitus without complications; I10 Essential (primary) hypertension; E78.5 Hyperlipidemia, unspecified; Z79.4 Long term (current) use of insulin; E78.00 Pure hypercholesterolemia, unspecified; Z88.8 Allergy status to other drugs, medicaments and biological substances; Z90.89 Acquired absence of other organs; Z98.890 Other specified postprocedural states; F17.220 Nicotine dependence, chewing tobacco, uncomplicated

== ENCOUNTER 2023-10-25 05:10 | Emergency (ER) | payer OTHER ==
[~2023-10-25] VITALS: Ht 172.7 cm; Wt 95.7 kg
[2023-10-25] MEDS ORDERED: Ondansetron Hydrochloride 4 MG/2 ML VIAL IV ONE (05:35)
[2023-10-25] MEDS ORDERED: SODIUM CHLORIDE 0.9% 1,000 ML IV ONE (05:35)
[2023-10-25] MEDS ORDERED: Pantoprazole Sodium 40 MG VIAL IV ONE (05:35)
[2023-10-25 06:21] LABS: BASO % 0.6 % (0.0-1.0); EOS # 0.1 10*3/uL (0.0-0.4); EOS % 1.8 % (1.0-4.0); HEMATOCRIT 40.8 % (42.0-52.0); LYMPH # 1.5 10*3/uL (1.3-4.4); LYMPH % 20.9 % (27.0-41.0); MEAN CELL VOLUME 91.3 fl (80.0-94.0); MEAN PLATELET VOLUME 11.3 fl (9.6-12.3); MONO # 0.9 10*3/uL (0.1-1.0); MONO % 12.6 % (3.0-9.0); NEUT # 4.6 10*3/uL (2.3-7.9); NEUT % 63.7 % (47.0-73.0); PLATELET COUNT AUTOMATED 164 10*3/uL (130-400); RED BLOOD COUNT 4.47 10*6/uL (4.50-5.90); RED CELL DISTRI WIDTH 11.9 % (0-14.5); WHITE BLOOD COUNT 7.2 10*3/uL (4.8-10.8)
[2023-10-25 06:25] LABS: ALKALINE PHOSPHATASE 139 U/L (46-116); BUN 23 mg/dl (9-23); CHLORIDE 101 mmol/L (98-107); LIPASE 65 U/L (12-53); POTASSIUM 4.1 mmol/L (3.4-5.1); SGPT/ALT 21 U/L (5-49); TOTAL PROTEIN 6.5 gm/dL (6.0-8.0)
[2023-10-25] MEDS ORDERED: OMEPRAZOLE40 MG PO (07:06)
== END 2023-10-25 07:21 | disposition home or self-care (01) ==
LOC: ED 05:10
PROVIDERS: Internal Medicine
DX: A08.4 Viral intestinal infection, unspecified (principal); Z20.822 Contact with and (suspected) exposure to COVID-19; R11.2 Nausea with vomiting, unspecified; E11.22 Type 2 diabetes mellitus with diabetic chronic kidney disease; I12.9 Hypertensive chronic kidney disease with stage 1 through stage 4 chronic kidney disease, or unspecified chronic kidney disease; N18.31 Chronic kidney disease, stage 3a; E78.00 Pure hypercholesterolemia, unspecified; F17.210 Nicotine dependence, cigarettes, uncomplicated; Z88.8 Allergy status to other drugs, medicaments and biological substances; Z91.018 Allergy to other foods; Z98.890 Other specified postprocedural states; Z90.89 Acquired absence of other organs

== ENCOUNTER 2023-11-13 19:24 | Emergency (ER) | payer OTHER ==
[~2023-11-13] VITALS: Ht 172.7 cm; Wt 77.1 kg
[~2023-11-13 19:24] MED LIST changes: +OMEPRAZOLE40 MG PO
== END 2023-11-13 22:30 | disposition home or self-care (01) ==
LOC: ED 19:24
DX: S86.912A Strain of unspecified muscle(s) and tendon(s) at lower leg level, left leg, initial encounter (principal); E11.9 Type 2 diabetes mellitus without complications; F17.220 Nicotine dependence, chewing tobacco, uncomplicated; Z88.8 Allergy status to other drugs, medicaments and biological substances; Z79.82 Long term (current) use of aspirin; Z90.89 Acquired absence of other organs; Z98.890 Other specified postprocedural states; X50.1XXA Overexertion from prolonged static or awkward postures, initial encounter; Y93.89 Activity, other specified; Y92.89 Other specified places as the place of occurrence of the external cause; Y99.8 Other external cause status

== ENCOUNTER 2023-12-25 13:01 | Emergency (ER) | payer OTHER ==
[~2023-12-25] VITALS: Ht 172.7 cm; Wt 93.9 kg
[2023-12-25] MEDS ORDERED: Metoclopramide Hydrochloride 10 MG/2 ML AMP IV ONE (13:50)
[2023-12-25] MEDS ORDERED: SODIUM CHLORIDE 0.9% 1,000 ML IV ONE (13:55)
[2023-12-25 14:05] LABS: BASO % 0.3 % (0.0-1.0); EOS # 0.1 10*3/uL (0.0-0.4); EOS % 1.1 % (1.0-4.0); HEMATOCRIT 42.4 % (42.0-52.0); LYMPH # 1.2 10*3/uL (1.3-4.4); LYMPH % 19.5 % (27.0-41.0); MEAN CELL VOLUME 91.6 fl (80.0-94.0); MEAN CORPUSCULAR HGB 32.4 pg (27.0-31.0); MEAN CORPUSCULAR HGB CONC 35.4 g/dl (33.0-37.0); MEAN PLATELET VOLUME 10.9 fl (9.6-12.3); MONO # 0.8 10*3/uL (0.1-1.0); NEUT # 4.1 10*3/uL (2.3-7.9); NEUT % 65.5 % (47.0-73.0); PLATELET COUNT AUTOMATED 154 10*3/uL (130-400); RED BLOOD COUNT 4.63 10*6/uL (4.50-5.90); RED CELL DISTRI WIDTH 12.3 % (0-14.5); WHITE BLOOD COUNT 6.3 10*3/uL (4.8-10.8)
[2023-12-25 14:23] LABS: POTASSIUM 4.8 mmol/L (3.4-5.1); TOTAL PROTEIN 7.1 gm/dL (6.0-8.0)
[2023-12-25 16:10] LABS: BILIRUBIN Negative (Negative); BLOOD Negative (Negative); CLARITY Clear (Clear); COLOR Yellow (Yellow); GLUCOSE 3+ (Negative); KETONE Negative (Negative); LEUKO ESTERASE Negative (Negative); NITRITE Negative (Negative); PH 5.5 (4.5-8.0); SPECIFIC GRAVITY 1.025 (1.001-1.030); UROBILINOGEN 0.2 E.U./dl (0.0-1.0)
[2023-12-25 16:29] LABS: EPITHELIAL CELLS 0-2; WBC 0-2 wbc/hpf (0-5)
== END 2023-12-25 17:01 | disposition home or self-care (01) ==
LOC: ED 13:01
PROVIDERS: Student in an Organized Health Care Education/Training Program
DX: B34.9 Viral infection, unspecified (principal); R11.2 Nausea with vomiting, unspecified; R19.7 Diarrhea, unspecified; F17.220 Nicotine dependence, chewing tobacco, uncomplicated; Z88.8 Allergy status to other drugs, medicaments and biological substances; Z79.82 Long term (current) use of aspirin; Z79.899 Other long term (current) drug therapy; Z79.84 Long term (current) use of oral hypoglycemic drugs; Z90.89 Acquired absence of other organs; Z98.890 Other specified postprocedural states; Z96.611 Presence of right artificial shoulder joint

== ENCOUNTER 2024-01-21 14:08 | Emergency (ER) | payer OTHER ==
[~2024-01-21] VITALS: Ht 172.7 cm; Wt 95.7 kg
[2024-01-21] MEDS ORDERED: SITAGLIPTIN100 MG PO (14:30)
[2024-01-21] MEDS ORDERED: MEDROL DOSEPAK4 MG PO (16:55)
== END 2024-01-21 17:12 | disposition home or self-care (01) ==
LOC: ED 14:08
DX: B34.9 Viral infection, unspecified (principal); Z20.822 Contact with and (suspected) exposure to COVID-19; R11.10 Vomiting, unspecified; F17.220 Nicotine dependence, chewing tobacco, uncomplicated; Z88.8 Allergy status to other drugs, medicaments and biological substances; Z79.899 Other long term (current) drug therapy; Z79.82 Long term (current) use of aspirin; Z79.84 Long term (current) use of oral hypoglycemic drugs; Z98.890 Other specified postprocedural states; Z90.89 Acquired absence of other organs; Z96.611 Presence of right artificial shoulder joint

== ENCOUNTER 2024-02-10 20:37 | Emergency (ER) | payer OTHER ==
[~2024-02-10] VITALS: Ht 175.2 cm; Wt 98.4 kg
[~2024-02-10 20:37] MED LIST changes: +SITAGLIPTIN100 MG PO
== END 2024-02-10 21:59 | disposition home or self-care (01) ==
LOC: ED 20:37
DX: Z00.00 Encounter for general adult medical examination without abnormal findings (principal); Z20.822 Contact with and (suspected) exposure to COVID-19; E11.9 Type 2 diabetes mellitus without complications; I10 Essential (primary) hypertension; E78.00 Pure hypercholesterolemia, unspecified; I25.2 Old myocardial infarction; Z79.4 Long term (current) use of insulin; F17.220 Nicotine dependence, chewing tobacco, uncomplicated; Z88.8 Allergy status to other drugs, medicaments and biological substances; Z90.89 Acquired absence of other organs; Z98.890 Other specified postprocedural states

== ENCOUNTER 2024-03-20 00:11 | Emergency (ER) | payer OTHER ==
[~2024-03-20] VITALS: Ht 172.7 cm; Wt 93.9 kg
[2024-03-20] MEDS ORDERED: Ketorolac Tromethamine 60 MG/2 ML VIAL IM ONE (00:40)
[2024-03-20] MEDS ORDERED: METHOCARBAMOL 500 MG TAB PO ONE (00:40)
[2024-03-20] MEDS ORDERED: NAPROXEN250 MG PO (00:43)
[2024-03-20] MEDS ORDERED: METHOCARBAMOL750 M1 PO (00:43)
== END 2024-03-20 00:57 | disposition home or self-care (01) ==
LOC: ED 00:11
DX: S39.012A Strain of muscle, fascia and tendon of lower back, initial encounter (principal); E11.9 Type 2 diabetes mellitus without complications; I10 Essential (primary) hypertension; E78.00 Pure hypercholesterolemia, unspecified; F17.220 Nicotine dependence, chewing tobacco, uncomplicated; Z79.4 Long term (current) use of insulin; Z88.8 Allergy status to other drugs, medicaments and biological substances; Z90.89 Acquired absence of other organs; Z98.890 Other specified postprocedural states; X58.XXXA Exposure to other specified factors, initial encounter; Y93.89 Activity, other specified; Y92.89 Other specified places as the place of occurrence of the external cause; Y99.0 Civilian activity done for income or pay

== ENCOUNTER 2024-04-14 13:15 | Emergency (ER) | payer OTHER ==
[~2024-04-14] VITALS: Wt 98.4 kg
[~2024-04-14 13:15] MED LIST changes: +METHOCARBAMOL750 M1 PO; +NAPROXEN250 MG PO
[2024-04-14] MEDS ORDERED: SODIUM CHLORIDE 0.9% 1,000 ML IV ONE (14:45)
[2024-04-14] MEDS ORDERED: KRILL OIL500 MG PO (14:48)
[2024-04-14] MEDS ORDERED: CELEBREX400 M1 PO (14:48)
[2024-04-14 14:58] LABS: BASO % 0.5 % (0.0-1.0); EOS # 0.1 10*3/uL (0.0-0.4); EOS % 1.2 % (1.0-4.0); HEMATOCRIT 42.9 % (42.0-52.0); MEAN CELL VOLUME 90.1 fl (80.0-94.0); MEAN CORPUSCULAR HGB 31.3 pg (27.0-31.0); MEAN CORPUSCULAR HGB CONC 34.7 g/dl (33.0-37.0); MEAN PLATELET VOLUME 10.5 fl (9.6-12.3); MONO # 0.8 10*3/uL (0.1-1.0); NEUT # 3.5 10*3/uL (2.3-7.9); NEUT % 59.5 % (47.0-73.0); PLATELET COUNT AUTOMATED 179 10*3/uL (130-400); RED BLOOD COUNT 4.76 10*6/uL (4.50-5.90); RED CELL DISTRI WIDTH 11.9 % (0-14.5); WHITE BLOOD COUNT 5.9 10*3/uL (4.8-10.8)
[2024-04-14 15:19] LABS: POTASSIUM 4.4 mmol/L (3.4-5.1); TOTAL PROTEIN 7.3 gm/dL (6.0-8.0)
[2024-04-14] MEDS ORDERED: IOHEXOL 300 MG/ML 100 ML VIAL IV ONE (16:20)
[2024-04-14] MEDS ORDERED: IOHEXOL 300 MG/ML 100 ML VIAL ONE (16:36)
[2024-04-14 16:56] LABS: BILIRUBIN Negative (Negative); BLOOD Negative (Negative); CLARITY Clear (Clear); COLOR Yellow (Yellow); GLUCOSE 3+ (Negative); KETONE Negative (Negative); LEUKO ESTERASE Negative (Negative); NITRITE Negative (Negative); PH 5.5 (4.5-8.0); SPECIFIC GRAVITY >= 1.030 (1.001-1.030); UROBILINOGEN 0.2 E.U./dl (0.0-1.0)
[2024-04-14 17:07] LABS: BACTERIA TRACE; WBC 0-2 wbc/hpf (0-5)
== END 2024-04-14 17:43 | disposition home or self-care (01) ==
LOC: ED 13:15
PROVIDERS: Nurse Practitioner Family
DX: R19.7 Diarrhea, unspecified (principal); R10.32 Left lower quadrant pain; E11.9 Type 2 diabetes mellitus without complications; I10 Essential (primary) hypertension; E78.00 Pure hypercholesterolemia, unspecified; I25.2 Old myocardial infarction; F17.220 Nicotine dependence, chewing tobacco, uncomplicated; Z88.8 Allergy status to other drugs, medicaments and biological substances; Z90.89 Acquired absence of other organs; Z98.890 Other specified postprocedural states; Z79.82 Long term (current) use of aspirin; Z79.899 Other long term (current) drug therapy

== ENCOUNTER 2024-04-17 13:34 | Emergency (ER) | payer OTHER ==
[~2024-04-17] VITALS: Ht 172.7 cm; Wt 98.4 kg
[~2024-04-17 13:34] MED LIST changes: +CELEBREX400 M1 PO; +KRILL OIL500 MG PO
[2024-04-17 16:59] LABS: BASO % 0.4 % (0.0-1.0); EOS # 0.2 10*3/uL (0.0-0.4); HEMATOCRIT 43.1 % (42.0-52.0); MEAN CELL VOLUME 90.4 fl (80.0-94.0); MEAN CORPUSCULAR HGB 31.2 pg (27.0-31.0); MEAN CORPUSCULAR HGB CONC 34.6 g/dl (33.0-37.0); MEAN PLATELET VOLUME 10.5 fl (9.6-12.3); MONO % 13.8 % (3.0-9.0); NEUT # 4.2 10*3/uL (2.3-7.9); NEUT % 56.2 % (47.0-73.0); PLATELET COUNT AUTOMATED 193 10*3/uL (130-400); RED BLOOD COUNT 4.77 10*6/uL (4.50-5.90); RED CELL DISTRI WIDTH 11.9 % (0-14.5); WHITE BLOOD COUNT 7.5 10*3/uL (4.8-10.8)
[2024-04-17 17:22] LABS: POTASSIUM 4.2 mmol/L (3.4-5.1); TOTAL PROTEIN 7.3 gm/dL (6.0-8.0)
[2024-04-17] MEDS ORDERED: LOMOTIL 2.5-0.1 EACH PO (18:23)
[2024-04-17] MEDS ORDERED: CIPRO500 MG PO (18:23)
[2024-04-17] MEDS ORDERED: Ciprofloxacin Hydrochloride 500 MG TAB PO ONE (18:25)
== END 2024-04-17 18:46 | disposition home or self-care (01) ==
LOC: ED 13:34
PROVIDERS: Nurse Practitioner Family
DX: R11.2 Nausea with vomiting, unspecified (principal); Z20.822 Contact with and (suspected) exposure to COVID-19; R19.7 Diarrhea, unspecified; E11.65 Type 2 diabetes mellitus with hyperglycemia; E78.5 Hyperlipidemia, unspecified; D63.1 Anemia in chronic kidney disease; E11.22 Type 2 diabetes mellitus with diabetic chronic kidney disease; I12.9 Hypertensive chronic kidney disease with stage 1 through stage 4 chronic kidney disease, or unspecified chronic kidney disease; N18.31 Chronic kidney disease, stage 3a; E78.00 Pure hypercholesterolemia, unspecified; F17.210 Nicotine dependence, cigarettes, uncomplicated; Z88.8 Allergy status to other drugs, medicaments and biological substances; Z98.890 Other specified postprocedural states; Z90.89 Acquired absence of other organs

== ENCOUNTER 2024-05-12 16:45 | Emergency (ER) | payer OTHER ==
[~2024-05-12] VITALS: Ht 172.7 cm; Wt 93.9 kg
[~2024-05-12 16:45] MED LIST changes: +CIPRO500 MG PO; +LOMOTIL 2.5-0.1 EACH PO
[2024-05-12] MEDS ORDERED: Ondansetron Hydrochloride 4 MG/2 ML VIAL IV ONE (18:45)
[2024-05-12] MEDS ORDERED: SODIUM CHLORIDE 0.9% 1,000 ML IV ONE (18:45)
[2024-05-12 19:07] LABS: BASO % 0.5 % (0.0-1.0); EOS # 0.1 10*3/uL (0.0-0.4); HEMATOCRIT 43.1 % (42.0-52.0); MEAN CELL VOLUME 90.4 fl (80.0-94.0); MEAN CORPUSCULAR HGB CONC 34.3 g/dl (33.0-37.0); MEAN PLATELET VOLUME 10.6 fl (9.6-12.3); MONO # 0.9 10*3/uL (0.1-1.0); MONO % 12.2 % (3.0-9.0); NEUT # 4.6 10*3/uL (2.3-7.9); PLATELET COUNT AUTOMATED 190 10*3/uL (130-400); RED BLOOD COUNT 4.77 10*6/uL (4.50-5.90); RED CELL DISTRI WIDTH 11.9 % (0-14.5); WHITE BLOOD COUNT 7.7 10*3/uL (4.8-10.8)
[2024-05-12 19:27] LABS: POTASSIUM 3.9 mmol/L (3.4-5.1); TOTAL PROTEIN 7.1 gm/dL (6.0-8.0)
[2024-05-12] MEDS ORDERED: Phenergan25 MG PO (20:33)
== END 2024-05-12 20:38 | disposition home or self-care (01) ==
LOC: ED 16:45
PROVIDERS: Nurse Practitioner Family
DX: B34.9 Viral infection, unspecified (principal); Z20.822 Contact with and (suspected) exposure to COVID-19; R11.2 Nausea with vomiting, unspecified; R19.7 Diarrhea, unspecified; R09.81 Nasal congestion; I12.9 Hypertensive chronic kidney disease with stage 1 through stage 4 chronic kidney disease, or unspecified chronic kidney disease; E11.22 Type 2 diabetes mellitus with diabetic chronic kidney disease; N18.31 Chronic kidney disease, stage 3a; E78.5 Hyperlipidemia, unspecified; I25.2 Old myocardial infarction; F17.220 Nicotine dependence, chewing tobacco, uncomplicated; Z88.8 Allergy status to other drugs, medicaments and biological substances; Z79.82 Long term (current) use of aspirin; Z79.899 Other long term (current) drug therapy; Z79.84 Long term (current) use of oral hypoglycemic drugs; Z90.89 Acquired absence of other organs; Z98.890 Other specified postprocedural states

== ENCOUNTER 2024-06-05 11:52 | Emergency (ER) | payer OTHER ==
[~2024-06-05] VITALS: Ht 172.7 cm; Wt 93.9 kg
[~2024-06-05 11:52] MED LIST changes: +Phenergan25 MG PO
[2024-06-05] MEDS ORDERED: ACETAMINOPHEN 325 MG TAB PO ONE (12:25)
[2024-06-05] MEDS ORDERED: METOCLOPRAMIDE5 MG PO (14:12)
== END 2024-06-05 14:18 | disposition home or self-care (01) ==
LOC: ED 11:52
DX: B34.9 Viral infection, unspecified (principal); Z20.822 Contact with and (suspected) exposure to COVID-19; R11.0 Nausea; E78.5 Hyperlipidemia, unspecified; E11.22 Type 2 diabetes mellitus with diabetic chronic kidney disease; I12.9 Hypertensive chronic kidney disease with stage 1 through stage 4 chronic kidney disease, or unspecified chronic kidney disease; N18.9 Chronic kidney disease, unspecified; E78.00 Pure hypercholesterolemia, unspecified; F17.220 Nicotine dependence, chewing tobacco, uncomplicated; Z88.8 Allergy status to other drugs, medicaments and biological substances; Z90.89 Acquired absence of other organs; Z98.890 Other specified postprocedural states

== ENCOUNTER 2024-06-19 07:24 | Emergency (ER) | payer OTHER ==
[~2024-06-19] VITALS: Ht 172.7 cm; Wt 98.0 kg
[~2024-06-19 07:24] MED LIST changes: +METOCLOPRAMIDE5 MG PO
[2024-06-19] MEDS ORDERED: FAMOTIDINE 50 ML IV ONE (08:20)
[2024-06-19] MEDS ORDERED: SODIUM CHLORIDE 0.9% 1,000 ML IV ONE (08:20)
[2024-06-19] MEDS ORDERED: Loperamide Hydrochloride 2 MG CAP PO ONE (08:20)
[2024-06-19 08:34] LABS: BASO % 0.4 % (0.0-1.0); EOS # 0.1 10*3/uL (0.0-0.4); EOS % 1.3 % (1.0-4.0); HEMATOCRIT 47.3 % (42.0-52.0); MEAN CELL VOLUME 90.6 fl (80.0-94.0); MEAN CORPUSCULAR HGB CONC 34.2 g/dl (33.0-37.0); MEAN PLATELET VOLUME 10.5 fl (9.6-12.3); MONO # 0.8 10*3/uL (0.1-1.0); MONO % 11.5 % (3.0-9.0); NEUT # 4.5 10*3/uL (2.3-7.9); NEUT % 65.1 % (47.0-73.0); PLATELET COUNT AUTOMATED 185 10*3/uL (130-400); RED BLOOD COUNT 5.22 10*6/uL (4.50-5.90); RED CELL DISTRI WIDTH 11.5 % (0-14.5); WHITE BLOOD COUNT 6.9 10*3/uL (4.8-10.8)
[2024-06-19 08:53] LABS: BUN 20 mg/dl (9-23); CHLORIDE 100 mmol/L (98-107); POTASSIUM 4.2 mmol/L (3.4-5.1)
[2024-06-19] MEDS ORDERED: ANTI-DIARRHEAL2 MG PO (09:06)
[2024-06-19] MEDS ORDERED: SEPTDS PO (09:06)
== END 2024-06-19 10:13 | disposition home or self-care (01) ==
LOC: ED 07:24
PROVIDERS: Emergency Medicine
DX: R19.7 Diarrhea, unspecified (principal); R11.0 Nausea; E11.9 Type 2 diabetes mellitus without complications; I10 Essential (primary) hypertension; E78.5 Hyperlipidemia, unspecified; E78.00 Pure hypercholesterolemia, unspecified; F17.220 Nicotine dependence, chewing tobacco, uncomplicated; Z88.8 Allergy status to other drugs, medicaments and biological substances; Z90.89 Acquired absence of other organs; Z98.890 Other specified postprocedural states

== ENCOUNTER 2024-08-24 18:45 | Emergency (ER) | payer OTHER ==
[~2024-08-24] VITALS: Ht 172.7 cm; Wt 98.4 kg
[~2024-08-24 18:45] MED LIST changes: +ANTI-DIARRHEAL2 MG PO; +SEPTDS PO
[2024-08-24 19:31] LABS: BASO % 0.3 % (0.0-1.0); EOS # 0.1 10*3/uL (0.0-0.4); EOS % 0.8 % (1.0-4.0); HEMATOCRIT 42.9 % (42.0-52.0); MEAN CELL VOLUME 87.4 fl (80.0-94.0); MEAN CORPUSCULAR HGB 31.4 pg (27.0-31.0); MEAN CORPUSCULAR HGB CONC 35.9 g/dl (33.0-37.0); MEAN PLATELET VOLUME 11.1 fl (9.6-12.3); MONO # 0.8 10*3/uL (0.1-1.0); MONO % 9.3 % (3.0-9.0); NEUT # 6.6 10*3/uL (2.3-7.9); NEUT % 75.6 % (47.0-73.0); PLATELET COUNT AUTOMATED 176 10*3/uL (130-400); RED BLOOD COUNT 4.91 10*6/uL (4.50-5.90); RED CELL DISTRI WIDTH 11.8 % (0-14.5); WHITE BLOOD COUNT 8.7 10*3/uL (4.8-10.8)
[2024-08-24 19:59] LABS: BUN 17 mg/dl (9-23); CHLORIDE 99 mmol/L (98-107); POTASSIUM 4.2 mmol/L (3.4-5.1)
[2024-08-24] MEDS ORDERED: INSULIN REGULAR, HUMAN 1 UNIT/0.01 ML IV ONE (20:10)
[2024-08-24] MEDS ORDERED: SODIUM CHLORIDE 0.9% 1,000 ML IV ONE ×2 (20:10)
[2024-08-24] MEDS ORDERED: VIBRAMYCIN100 MG PO (23:40)
[2024-08-24] MEDS ORDERED: Doxycycline Hyclate 100 MG TAB PO ONE (23:45)
== END 2024-08-24 23:51 | disposition home or self-care (01) ==
LOC: ED 18:45
PROVIDERS: Internal Medicine
DX: K21.9 Gastro-esophageal reflux disease without esophagitis (principal); E11.65 Type 2 diabetes mellitus with hyperglycemia; L03.019 Cellulitis of unspecified finger; E11.22 Type 2 diabetes mellitus with diabetic chronic kidney disease; M25.512 Pain in left shoulder; M25.511 Pain in right shoulder; M54.2 Cervicalgia; I12.9 Hypertensive chronic kidney disease with stage 1 through stage 4 chronic kidney disease, or unspecified chronic kidney disease; N18.32 Chronic kidney disease, stage 3b; E78.00 Pure hypercholesterolemia, unspecified; F17.220 Nicotine dependence, chewing tobacco, uncomplicated; Z88.8 Allergy status to other drugs, medicaments and biological substances; Z90.89 Acquired absence of other organs; Z98.890 Other specified postprocedural states

== ENCOUNTER 2024-12-12 13:51 | Emergency (ER) | payer OTHER ==
[~2024-12-12] VITALS: Ht 172.7 cm; Wt 98.4 kg
[~2024-12-12 13:51] MED LIST changes: +CELEBREX50 MG PO; +HUMALOG100 UNIT/1 SC; +LANTUS SOL100 UNIT/1 SC; +OMEPRAZOLE MAGN20 MG PO; +VIBRAMYCIN100 MG PO
[2024-12-12] MEDS ORDERED: Ondansetron Hydrochloride 4 MG/2 ML VIAL IV ONE (14:20)
[2024-12-12] MEDS ORDERED: SODIUM CHLORIDE 0.9% 1,000 ML IV ONE (14:20)
[2024-12-12 14:36] LABS: BASO # 0.0 10*3/uL (0.0-0.1); BASO % 0.5 % (0.0-1.0); EOS # 0.1 10*3/uL (0.0-0.4); EOS % 0.8 % (1.0-4.0); MEAN CELL VOLUME 88.3 fl (80.0-94.0); MEAN CORPUSCULAR HGB 31.5 pg (27.0-31.0); MEAN PLATELET VOLUME 10.4 fl (9.6-12.3); MONO # 1.0 10*3/uL (0.1-1.0); MONO % 12.9 % (3.0-9.0); NEUT # 4.8 10*3/uL (2.3-7.9); NEUT % 64.6 % (47.0-73.0); NUCLEATED RED BLOOD CELL 0.0 % (0.0-0.0); NUCLEATED RED BLOOD CELL 0.0 10*3/uL (0.0-0.0); PLATELET COUNT AUTOMATED 187 10*3/uL (130-400); RED CELL DISTRI WIDTH 11.4 % (0-14.5)
[2024-12-12 14:51] LABS: BUN 35.0 mg/dl (9-23); CPK 167.0 U/L (34-171)
== END 2024-12-12 15:33 | disposition home or self-care (01) ==
LOC: ED 13:51
PROVIDERS: Emergency Medicine
DX: M79.18 Myalgia, other site (principal); E11.65 Type 2 diabetes mellitus with hyperglycemia; E11.22 Type 2 diabetes mellitus with diabetic chronic kidney disease; I12.9 Hypertensive chronic kidney disease with stage 1 through stage 4 chronic kidney disease, or unspecified chronic kidney disease; N18.9 Chronic kidney disease, unspecified; E78.5 Hyperlipidemia, unspecified; Z88.8 Allergy status to other drugs, medicaments and biological substances; Z79.82 Long term (current) use of aspirin; Z79.84 Long term (current) use of oral hypoglycemic drugs; Z79.899 Other long term (current) drug therapy; Z90.89 Acquired absence of other organs; Z98.890 Other specified postprocedural states; Z96.611 Presence of right artificial shoulder joint; Z87.891 Personal history of nicotine dependence

== ENCOUNTER 2025-01-14 07:13 | Emergency (ER) | payer OTHER ==
[~2025-01-14] VITALS: Ht 172.7 cm; Wt 98.4 kg
[2025-01-14] MEDS ORDERED: LIDOCAINE 1 EA PATCH T ONE (07:40)
[2025-01-14] MEDS ORDERED: LIDOCAINE PAIN1 EACH T (09:07)
== END 2025-01-14 09:15 | disposition home or self-care (01) ==
LOC: ED 07:13
DX: M25.561 Pain in right knee (principal); I10 Essential (primary) hypertension; E11.9 Type 2 diabetes mellitus without complications; E78.00 Pure hypercholesterolemia, unspecified; F17.200 Nicotine dependence, unspecified, uncomplicated; Z79.82 Long term (current) use of aspirin; Z79.4 Long term (current) use of insulin; Z88.8 Allergy status to other drugs, medicaments and biological substances; Z98.890 Other specified postprocedural states